=== PATIENT | female | born 1960 | race Caucasian/White ===

== ENCOUNTER 2016-04-11 11:32 | Outpatient (CLI) | payer BC | END 2016-04-11 11:33 | disposition home or self-care (01) | DX: E03.9 Hypothyroidism, unspecified (principal) ==

== ENCOUNTER 2017-05-04 07:49 | Outpatient (CLI) | payer BC ==
[2017-05-04 12:42] LABS: BASOPHILS % (AUTO) 0.6 %; EOSINOPHILS # (AUTO) 0.2 10^3/uL (0.0-0.7); EOSINOPHILS % (AUTO) 3.4 %; HGB - HEMOGLOBIN 13.3 g/dL (12.0-16.0); LYMPHOCYTES # (AUTO) 1.5 10^3/uL (1.5-3.5); LYMPHOCYTES % (AUTO) 22.1 %; MEAN CORPUSCULAR HEMOGLOBIN 30.6 pg (27.0-31.0); MEAN CORPUSCULAR HGB CONC 35.1 g/dL (32.0-36.0); MEAN CORPUSCULAR VOLUME 87.4 fL (81.0-99.0); MEAN PLATELET VOLUME 8.9 fL (7.9-10.8); MONOCYTES # (AUTO) 0.4 10^3/uL (0.0-1.0); MONOCYTES % (AUTO) 6.4 %; NEUTROPHILS # (AUTO) 4.5 10^3/uL (1.5-6.6); NEUTROPHILS % (AUTO) 67.5 %; PLT - PLATELET COUNT 191 10^3/uL (130-450); RED BLOOD COUNT 4.35 10^6/uL (4.20-5.40); WHITE BLOOD COUNT 6.7 x10^3/uL (4.8-10.8)
[2017-05-04 13:02] LABS: HB2 TOTAL 14.5 g/dL; HEMOGLOBIN A1C 0.65 g/dL; HEMOGLOBIN A1C % 6.3 % (4.6-6.2)
[2017-05-04 13:06] LABS: ALBUMIN/GLOBULIN RATIO 1.3 (1.0-2.2); ALKALINE PHOSPHATASE 49 IU/L (42-121); ALT ALANINE AMINOTRANSFERASE 19 IU/L (10-60); AST ASPARTATE AMINOTRANSFERASE 18 IU/L (10-42); BILIRUBIN,TOTAL 0.3 mg/dL (0.2-1.0); BUN - BLOOD UREA NITROGEN 21 mg/dL (6-20); CALCIUM 8.9 mg/dL (8.5-10.3); CARBON DIOXIDE - CO2 27 mmol/L (21-32); CHLORIDE 104 mmol/L (101-111); CHOL/HDL RATIO 3.4 (<4.4); CHOLESTEROL 189 mg/dL; CREATININE 0.9 mg/dL (0.4-1.0); GFR - MDRD 64 (>89); GLUCOSE 128 mg/dL (70-100); HDL CHOLESTEROL 55 mg/dL; LDL CHOLESTEROL,CALCULATED 119 mg/dL; LDL/HDL RATIO 2.2 (<4.4); SODIUM 138 mmol/L (135-145); TOTAL PROTEIN 7.2 g/dL (6.7-8.2); VLDL CHOLESTEROL 15 mg/dL
== END 2017-05-04 07:50 | disposition home or self-care (01) ==
LOC: LAB.WCP 07:49
PROVIDERS: ATTEND Physician Assistant Medical
DX: Z00.00 Encounter for general adult medical examination without abnormal findings (principal); E11.9 Type 2 diabetes mellitus without complications; E03.9 Hypothyroidism, unspecified; Z51.81 Encounter for therapeutic drug level monitoring; Z79.899 Other long term (current) drug therapy
CPT/HCPCS: 36415; 80053; 80061; 82043; 83036; 83721; 84443; 85025

== ENCOUNTER 2017-05-06 07:47 | Outpatient (CLI) | payer BC ==
--- NOTE | 2017-05-06 16:58 | DEXA Report ---
DEXA SCAN: 05/06/2017 CLINICAL INDICATION: Osteopenia. TECHNIQUE: Dual energy x-ray absorptiometry (DXA) was performed on a [employer] system. Regions measured are the AP spine, femoral neck, and, if needed, forearm. COMPARISON: None. In accordance with the International Society for Clinical Densitometry (ISCD) guidelines, data from previous exams may be reanalyzed using current recommendations and techniques. This is done to allow a more accurate basis for comparison with the current study. FINDINGS: The data for the lumbar spine is as follows: REGION BMD (g/cm/cm) T-SCORE Z-SCORE L1 1.153 0.2 0.1 L2 1.091 -0.9 -1.0 L3 1.155 -0.4 -0.4 L4 1.072 -1.1 -1.1 TOTAL 1.115 -0.5 -0.6 NOTE: All evaluable vertebrae are used for classification. The data for the hip is as follows: REGION BMD (g/cm/cm) T-SCORE Z-SCORE Neck 0.864 -1.3 -0.8 TOTAL 1.015 0.1 0.1 NOTE: The femoral neck or total proximal femur, whichever is lowest, is used for classification. IMPRESSION: THE WHO CLASSIFICATION BASED ON THE INTERNATIONAL REFERENCE STANDARD IS OSTEOPENIA (REFERENCE LEFT FEMORAL NECK). THE FRACTURE RISK IS INCREASED. RECOMMENDATION: Patients with diagnosis of osteoporosis or osteopenia should have regular bone mineral density assessment. For those eligible for Medicare, routine testing is allowed once every 2 years. Testing frequency can be increased for patients who have rapidly progressing disease or for those who are receiving medical therapy to restore bone mass. COMMENT: World Health Organization (WHO) definitions for osteoporosis and osteopenia: NORMAL BMD: T-score at 1.0 or higher, fracture risk is low. OSTEOPENIA BMD: T-score between 1.0 and -2.5, fracture risk is increased. OSTEOPOROSIS BMD: T-score at 2.5 or lower, fracture risk high. National Osteoporosis Foundation recommends: 1. Obtain adequate dietary calcium (at least 1200 mg per day) and vitamin D (400 -800 international units per day). 2. Participate, as appropriate, in regular weightbearing and muscle- strengthening exercise. 3. Avoid tobacco use and reduce alcohol and caffeine intake. 4. For more detailed information see the website at www.NOF.org. TD: 05/06/2017 11:50 EILEEN
== END 2017-05-06 07:48 | disposition home or self-care (01) ==
LOC: DI 07:47
PROVIDERS: ATTEND Physician Assistant Medical
DX: M85.88 Other specified disorders of bone density and structure, other site (principal)
CPT/HCPCS: 77080

== ENCOUNTER 2017-05-06 07:49 | Outpatient (CLI) | payer BC ==
--- NOTE | 2017-05-07 16:09 | Mammography Report ---
DATE OF SERVICE: 05/06/2017 DIGITAL SCREENING MAMMOGRAM: 05/06/2017 CLINICAL INDICATION: A 57-year-old with a family history of breast cancer for screening. COMPARISON: 03/2016, 03/2015, 02/2014, 02/2013, 06/2011, 04/2009. TECHNIQUE: Routine CC and MLO projections were obtained of the breasts. FINDINGS: The breasts again demonstrate scattered fibroglandular densities bilaterally. Punctate, typically benign calcifications are present. No suspicious masses, clustered microcalcifications, or regions of architectural distortion are identified. IMPRESSION: BENIGN FINDINGS. RECOMMENDATION: Routine annual screening today otherwise clinically indicated. BIRADS CATEGORY 2 - BENIGN FINDINGS. STANDARD QUALIFYING STATEMENTS: 1. This examination was reviewed with the aid of Computer-Aided Detection (CAD). 2. A negative or benign imaging report should not delay biopsy if clinically suspicious findings are present. Consider surgical consultation if warranted. More than 5% of cancers are not identified by imaging. 3. Dense breasts may obscure an underlying neoplasm. TD: 05/07/2017 16:08
== END 2017-05-06 07:50 | disposition home or self-care (01) ==
LOC: DI 07:49
PROVIDERS: ATTEND Physician Assistant Medical
DX: Z12.31 Encounter for screening mammogram for malignant neoplasm of breast (principal); Z80.3 Family history of malignant neoplasm of breast
CPT/HCPCS: 77067

== ENCOUNTER 2017-12-01 11:27 | Outpatient (CLI) | payer BC ==
[2017-12-01 18:42] LABS: BASOPHILS # (AUTO) 0.1 10^3/uL (0.0-0.1); BASOPHILS % (AUTO) 1.1 %; EOSINOPHILS # (AUTO) 0.2 10^3/uL (0.0-0.7); HGB - HEMOGLOBIN 13.4 g/dL (12.0-16.0); LYMPHOCYTES # (AUTO) 1.6 10^3/uL (1.5-3.5); MEAN CORPUSCULAR HGB CONC 33.5 g/dL (32.0-36.0); MEAN CORPUSCULAR VOLUME 92.5 fL (81.0-99.0); MEAN PLATELET VOLUME 9.3 fL (7.9-10.8); MONOCYTES # (AUTO) 0.4 10^3/uL (0.0-1.0); MONOCYTES % (AUTO) 6.9 %; NEUTROPHILS # (AUTO) 3.1 10^3/uL (1.5-6.6); PLT - PLATELET COUNT 205 10^3/uL (130-450); RED BLOOD COUNT 4.33 10^6/uL (4.20-5.40); RED CELL DISTRIBUTION WIDTH 14.1 % (12.0-15.0); WHITE BLOOD COUNT 5.3 x10^3/uL (4.8-10.8)
[2017-12-01 19:19] LABS: ALBUMIN/GLOBULIN RATIO 1.3 (1.0-2.2); ALKALINE PHOSPHATASE 48 IU/L (42-121); ALT ALANINE AMINOTRANSFERASE 18 IU/L (10-60); AST ASPARTATE AMINOTRANSFERASE 18 IU/L (10-42); BILIRUBIN,TOTAL 0.8 mg/dL (0.2-1.0); BUN - BLOOD UREA NITROGEN 23 mg/dL (6-20); CALCIUM 9.1 mg/dL (8.5-10.3); CARBON DIOXIDE - CO2 25 mmol/L (21-32); CHLORIDE 105 mmol/L (101-111); CREATININE 0.8 mg/dL (0.4-1.0); GFR - MDRD 73 (>89); GLUCOSE 152 mg/dL (70-100); SODIUM 137 mmol/L (135-145); TOTAL PROTEIN 7.2 g/dL (6.7-8.2)
[2017-12-01 20:05] LABS: HB2 TOTAL 14.2 g/dL; HEMOGLOBIN A1C 0.66 g/dL; HEMOGLOBIN A1C % 6.4 % (4.6-6.2)
== END 2017-12-01 11:28 | disposition home or self-care (01) ==
LOC: LAB.WCP 11:27
PROVIDERS: ATTEND Family Medicine
DX: I10 Essential (primary) hypertension (principal); E11.9 Type 2 diabetes mellitus without complications; E03.9 Hypothyroidism, unspecified
CPT/HCPCS: 36415; 80053; 83036; 84443; 85025

== ENCOUNTER 2018-08-13 08:00 | Outpatient (CLI) | payer BC, OTHER ==
[2018-08-13 12:28] LABS: BASOPHILS # (AUTO) 0.1 10^3/uL (0.0-0.1); BASOPHILS % (AUTO) 1.2 %; EOSINOPHILS % (AUTO) 0.3 %; HGB - HEMOGLOBIN 13.8 g/dL (12.0-16.0); LYMPHOCYTES # (AUTO) 2.1 10^3/uL (1.5-3.5); LYMPHOCYTES % (AUTO) 28.4 %; MEAN CORPUSCULAR HEMOGLOBIN 30.6 pg (27.0-31.0); MEAN CORPUSCULAR HGB CONC 32.9 g/dL (32.0-36.0); MEAN PLATELET VOLUME 8.9 fL (7.9-10.8); MONOCYTES # (AUTO) 0.5 10^3/uL (0.0-1.0); MONOCYTES % (AUTO) 6.4 %; NEUTROPHILS # (AUTO) 4.7 10^3/uL (1.5-6.6); NEUTROPHILS % (AUTO) 63.7 %; PLT - PLATELET COUNT 246 10^3/uL (130-450); RED BLOOD COUNT 4.52 10^6/uL (4.20-5.40); RED CELL DISTRIBUTION WIDTH 14.4 % (12.0-15.0); WHITE BLOOD COUNT 7.4 x10^3/uL (4.8-10.8)
[2018-08-13 13:09] LABS: ALBUMIN 4.4 g/dL (3.2-5.5); ALBUMIN/GLOBULIN RATIO 1.3 (1.0-2.2); ALKALINE PHOSPHATASE 53 IU/L (42-121); ALT ALANINE AMINOTRANSFERASE 23 IU/L (10-60); AST ASPARTATE AMINOTRANSFERASE 20 IU/L (10-42); BILIRUBIN,TOTAL 0.8 mg/dL (0.2-1.0); BUN - BLOOD UREA NITROGEN 23 mg/dL (6-20); CALCIUM 9.3 mg/dL (8.5-10.3); CARBON DIOXIDE - CO2 27 mmol/L (21-32); CHLORIDE 102 mmol/L (101-111); CHOL/HDL RATIO 2.9 (<4.4); CHOLESTEROL 209 mg/dL; CREATININE 0.9 mg/dL (0.4-1.0); GFR - MDRD 64 (>89); GLUCOSE 122 mg/dL (70-100); HDL CHOLESTEROL 73 mg/dL; LDL CHOLESTEROL,CALCULATED 112 mg/dL; LDL/HDL RATIO 1.5 (<4.4); SODIUM 137 mmol/L (135-145); TOTAL PROTEIN 7.8 g/dL (6.7-8.2); VLDL CHOLESTEROL 24 mg/dL
[2018-08-13 13:14] LABS: HEMOGLOBIN A1C 0.71 g/dL; HEMOGLOBIN A1C % 6.5 % (4.6-6.2)
== END 2018-08-13 23:59 | disposition home or self-care (01) ==
LOC: LAB.WCP 08:00
PROVIDERS: ATTEND Family Medicine
DX: Z00.00 Encounter for general adult medical examination without abnormal findings (principal); I10 Essential (primary) hypertension; E11.9 Type 2 diabetes mellitus without complications
CPT/HCPCS: 36415; 80053; 80061; 83036; 83721; 84443; 85025

== ENCOUNTER 2018-09-10 17:49 | Inpatient (IN) | payer BC, OTHER ==
--- NOTE | 2018-09-10 18:53 | ED Physician Documentation ---
PD HPI CHEST PAIN - Stated complaint Stated Complaint: HIGH HR - Chief complaint Chief Complaint: Cardiac - History obtained from History obtained from: Patient - History of Present Illness Timing - onset: Other (For the last 2 weeks whenever she exercises she has some very mild chest pressure and feeling of a rapid heart rate associated with fatigue. It comes and goes. There is no shortness of breath at rest. 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 HEENT: Tonsil/Adenoidectomy - Allergies Allergies/Adverse Reactions: Allergies Allergy/AdvReac Type Severity Reaction Status Date / Time No Known Drug Allergies Allergy Verified 09/10/18 18:00 - Social History Does the pt smoke?: No Smoking Status: Never smoker Does the pt drink ETOH?: Yes Does the pt have substance abuse?: No - Immunizations Immunizations are current?: Yes - POLST Patient has POLST: No PD ED PE NORMAL - Vitals Vital signs reviewed: Yes - General General: Alert and oriented X 3, No acute distress - Neck Neck: Supple, no meningeal sign, No bony TTP - Cardiac Cardiac: RRR, No murmur - Respiratory Respiratory: No respiratory distress, Clear bilaterally - Abdomen Abdomen: Non tender - Derm Derm: No rash - Extremities Extremities: No edema, No calf tenderness / cord - Neuro Neuro: Alert and oriented X 3, Normal speech Results - Vitals Vitals: Vital Signs - 24 hr 09/10/18 09/10/18 09/10/18 17:55 18:42 19:29 Temperature 98.0 C H Heart Rate 95 82 Respiratory 18 18 36 H Rate Blood Pressure 162/92 H 161/91 H O2 Saturation 95 95 09/10/18 09/10/18 09/10/18 20:15 20:22 20:30 Temperature 36.6 C Heart Rate 80 82 Respiratory 22 21 Rate Blood Pressure 158/111 H O2 Saturation 89 L 98 100 Oxygen O2 Source Nasal cannula Oxygen Flow Rate 2 - EKG (time done) 1807 Rate: Rate (enter#) (80) Rhythm: NSR [place]: Normal Intervals: Normal TN QRS: Normal, Low voltage (Slightly low voltage in the precordial leads, could be due to body habitus.) Ischemia: No: ST elevation c/w ischemia, ST elevation c/w repol, ST depression Computer interpretation: Agree with computer - Labs Labs: Laboratory Tests 09/10/18 09/10/18 09/10/18 18:54 18:54 18:54 WBC 6.3 RBC 4.27 Hgb 13.5 Hct 40.0 MCV 93.6 MCH 31.5 H MCHC 33.6 RDW 14.5 Plt Count 205 MPV 8.2 Neut # (Auto) 3.7 Lymph # (Auto) 1.9 [place] # (Auto) 0.5 Eos # (Auto) 0.1 Baso # (Auto) 0.1 Absolute Nucleated RBC 0.00 Nucleated RBC % 0.1 PT 11.9 INR 1.1 Sodium 140 Potassium 4.2 Chloride 103 Carbon Dioxide 24 Anion Gap 13.0 BUN 20 Creatinine 0.9 Estimated GFR (MDRD) 64 L Glucose 170 H Calcium 9.2 Magnesium 1.8 Total Bilirubin 0.5 AST 19 ALT 17 Alkaline Phosphatase 50 Troponin I Total Protein 7.1 Albumin 3.9 Globulin 3.2 Albumin/Globulin Ratio 1.2 Lipase 36 09/10/18 18:54 WBC RBC Hgb Hct MCV MCH MCHC RDW Plt Count MPV Neut # (Auto) Lymph # (Auto) [place] # (Auto) Eos # (Auto) Baso # (Auto) Absolute Nucleated RBC Nucleated RBC % PT INR Sodium Potassium Chloride Carbon Dioxide Anion Gap BUN Creatinine Estimated GFR (MDRD) Glucose Calcium Magnesium Total Bilirubin AST ALT Alkaline Phosphatase Troponin I 0.06 Total Protein Albumin Globulin Albumin/Globulin Ratio Lipase - Rads (name of study) CTPA Radiology: EMP read contemporaneously (Nonspecific pulmonary nodules; There are multiple bilateral pulmonary emboli lobar and segmental within all lobes without saddle pulmonary embolism. There is flattening of the intraventricular septum consistent with right ventricular strain.) PD MEDICAL DECISION MAKING - ED course ED course: 58-year-old woman with a couple of weeks of dyspnea, exertional tachycardia and chest discomfort. On examination she appears obviously breathless with resting tachypnea up to 32 or so. There is no resting tachycardia but we walked her down the costa and she became inappropriately tachycardic with even minimal ambulation up into the 120s. She also had some episodes of hypoxia on room air while in bed down to 88 or 89%. She had a troponin that was not quite negative at 0.06. At that point she was sent for a CT pulmonary angiogram which was read by me as being consistent with a decent burden of bilateral pulmonary emboli. She was started on heparin drip and bolus. Her PESI score is 120 points, class IV. Departure - Departure Disposition: 66 [facility]H DC/Xfer Clinical Impression: Hypoxemia Pulmonary embolism Qualifiers: Pulmonary embolism type: unspecified Chronicity: acute Acute cor pulmonale presence: with acute cor pulmonale Qualified Code(s): I26.09 - Other pulmonary embolism with acute cor pulmonale Condition: Serious
[2018-09-10 19:02] LABS: BASOPHILS # (AUTO) 0.1 10^3/uL (0.0-0.1); EOSINOPHILS # (AUTO) 0.1 10^3/uL (0.0-0.7); EOSINOPHILS % (AUTO) 2.3 %; HGB - HEMOGLOBIN 13.5 g/dL (12.0-16.0); LYMPHOCYTES # (AUTO) 1.9 10^3/uL (1.5-3.5); LYMPHOCYTES % (AUTO) 30.7 %; MEAN CORPUSCULAR HEMOGLOBIN 31.5 pg (27.0-31.0); MEAN CORPUSCULAR HGB CONC 33.6 g/dL (32.0-36.0); MEAN CORPUSCULAR VOLUME 93.6 fL (81.0-99.0); MEAN PLATELET VOLUME 8.2 fL (7.9-10.8); MONOCYTES # (AUTO) 0.5 10^3/uL (0.0-1.0); MONOCYTES % (AUTO) 7.7 %; NEUTROPHILS # (AUTO) 3.7 10^3/uL (1.5-6.6); NEUTROPHILS % (AUTO) 58.3 %; PLT - PLATELET COUNT 205 10^3/uL (130-450); RED BLOOD COUNT 4.27 10^6/uL (4.20-5.40); RED CELL DISTRIBUTION WIDTH 14.5 % (12.0-15.0); WHITE BLOOD COUNT 6.3 x10^3/uL (4.8-10.8)
[2018-09-10 19:05] LABS: INR 1.1 (0.8-1.2); PT - PROTHROMBIN TIME 11.9 secs (9.9-12.6)
[2018-09-10 19:13] LABS: ALBUMIN 3.9 g/dL (3.2-5.5); ALBUMIN/GLOBULIN RATIO 1.2 (1.0-2.2); BILIRUBIN,TOTAL 0.5 mg/dL (0.2-1.0); CALCIUM 9.2 mg/dL (8.5-10.3); CREATININE 0.9 mg/dL (0.4-1.0); MAGNESIUM 1.8 mg/dL (1.7-2.8); TOTAL PROTEIN 7.1 g/dL (6.7-8.2)
[2018-09-10] MEDS ORDERED: IOVERSOL 320 100 ML VIAL IVP ONE ×2 (19:45→20:22)
[2018-09-10] MEDS ORDERED: HEPARIN 25000UNITS/500ML (D5W) 25,000 UNIT/500 ML BAG IV STA (20:14)
[2018-09-10] MEDS ORDERED: HEPARIN 5,000 UNIT/ML VIAL ONE (20:26)
--- NOTE | 2018-09-10 20:48 | CT Report ---
Reason: dyspnea Procedure Date: 09/10/2018 Accession Number: [id number] / [id number] Procedure: CT - ANGIO CHEST W/WO CPT Code: FULL RESULT: EXAM: CT ANGIOGRAM CHEST EXAM DATE: 09/10/2018 08:20 PM. CLINICAL HISTORY: Dyspnea. COMPARISON: None. TECHNIQUE: Routine helical imaging was performed through the chest in the pulmonary arterial phase. IV Contrast: 80 ML OPTIRAY 320. Reconstructions: Coronal 3-D MIP reconstructions.Sagittal and coronal. In accordance with CT protocol optimization, one or more of the following dose reduction techniques were utilized for this exam: automated exposure control, adjustment of mA and/or KV based on patient size, or use of iterative reconstructive technique. FINDINGS: Pulmonary Arteries: Diagnostic quality: Adequate through the segmental arteries. Positive for multiple bilateral pulmonary emboli. There are lobar and segmental emboli within all lobes. There are lower lobe subsegmental emboli. No saddle pulmonary embolism. There is flattening of the intraventricular septum. The RV LV ratio is abnormal at 1.3. There is no reflux of contrast into the hepatic veins. Lungs/Pleura: There are several nonspecific pulmonary nodules. There is a 10 mm right lower lobe nodule series 5 image 98. There is a 5 mm right upper lobe nodule image 33. There is a 6 mm right middle lobe nodule image 77. There is a 4 mm right lower lobe nodule image 111. There is a 4 mm left upper lobe nodule image 49. There is a 3 mm lingular nodule image 91. Negative for pleural effusion and pneumothorax. Mediastinum: The heart size is normal. No pericardial effusion. No mediastinal or hilar lymphadenopathy. Thoracic Aorta: Unremarkable. Upper Abdomen: Unremarkable. Other: None. IMPRESSION: 1. Positive for acute pulmonary embolism at the lobar and segmental level. Positive for CT features of right ventricular strain. 2. Several noncalcified indeterminant peripheral pulmonary nodules. Largest nodule 10 mm. Differential diagnosis would include granulomatous disease, metastatic disease or inflammatory nodule. If there are no prior chest CTs for comparison, recommend follow-up noncontrast chest CT in 3-6 months to reevaluate. JOHN The above critical result findings were discussed with Zaid García by Dr. Aston Lal at 08:46 PM on 09/10/2018.
[2018-09-10] MEDS ORDERED: ZOLPIDEM 5 MG TABLET PO PRN (22:35)
[2018-09-10] MEDS ORDERED: ACETAMINOPHEN 325 MG TABLET PO PRN (22:35)
[2018-09-10] MEDS ORDERED: ONDANSETRON 4 MG/2 ML VIAL IVP PRN (22:35)
[2018-09-10] MEDS ORDERED: oxyCODONE 5 MG TABLET PO PRN (22:35)
[2018-09-10 23:01] LABS: HGB - HEMOGLOBIN 13.1 g/dL (12.0-16.0); MEAN CORPUSCULAR HEMOGLOBIN 30.7 pg (27.0-31.0); MEAN CORPUSCULAR HGB CONC 32.9 g/dL (32.0-36.0); MEAN CORPUSCULAR VOLUME 93.5 fL (81.0-99.0); MEAN PLATELET VOLUME 8.5 fL (7.9-10.8); RED BLOOD COUNT 4.25 10^6/uL (4.20-5.40); RED CELL DISTRIBUTION WIDTH 14.5 % (12.0-15.0)
[2018-09-10] MEDS: IPRATROPIUM/ALBUTEROL 3 ML NEB INH SCH (23:29)
--- NOTE | 2018-09-11 00:50 | HISTORY & PHYSICAL EXAMINATION ---
DATE OF SERVICE: 09/10/2018 Physician: Myra Yen MD CHIEF COMPLAINT: Dyspnea on exertion and palpitations. HISTORY OF PRESENT ILLNESS: The patient is a pleasant 58-year-old white female with past medical history of back pain, hypertension, type 2 diabetes, osteoarthritis and hypothyroidism. She was a good historian, surrounded by family members when I examined her. She reported the following: She often travels to [place] and about six months ago when she was sitting in the car going to [place], she noticed right-sided hip pain. She followed up as an outpatient and underwent multiple studies during the past six months. In particular, besides the hip pain, she had left-sided knee pain as well and developed back pain. It was felt that the hip pain was secondary to a nerve issue, which I suppose could be sciatica. Subsequently MRI was done, which showed degenerative disease of the spine. She was told that she had "decreased fat pads" between the vertebrae and she was referred to see a clinical field specialist for possible steroid injections. Regarding the left knee pain, she describes that it started at the back of the knee and the pain radiated down on her calf; she was evaluated by an metrology specialist and was told to have a meniscus tear. These aches and pains have been ongoing for the past several months. Subsequently, two weeks ago, she noted that she became short of breath on minimal physical activity. This was a progressive complaint and eventually she started to feel short of breath even at rest. When she would do minimal activity, she would develop palpitations and chest discomfort and heaviness. Due to these complaints, she was instructed by her primary care provider to come to the ER. Upon presentation to the ER, she was found with hypoxic respiratory failure and required supplemental oxygen. Her oxygen saturation was in the 80s without oxygen. Her heart rate increased to 120 on minimal activity such as walking a few steps. At rest, her heart rate was around 70. Respiratory rate was in the 30s. Troponin was slightly elevated at 0.06. CT angiography of the chest showed bilateral pulmonary embolism at lobar and segmental location, in addition, the CT scan was suggestive of right ventricular strain. Besides the pulmonary embolism, pulmonary nodules were also described on the CT scan and three to six month for interval followup was recommended. Reviewing additional laboratories, coagulation studies were unremarkable, white blood cell count was normal, blood counts were unremarkable. Glucose was 170. Liver function tests were normal. EKG showed sinus rhythm with left axis and nonspecific changes. REVIEW OF SYMPTOMS: Please see pertinent positives listed above at history of present illness. In addition, the patient reported history of miscarriage in her mother, the mother had more than five miscarriages. No other miscarriage or history of blood clots in the family. She did report that she is up to date with health screens. Colonoscopy was 10 years ago, was normal and she is due for another one in the next few months. She goes for mammography yearly. She did not report any prolonged periods of immobility, did not have recent surgery, does not have history of cancer, although mentions that multiple family members in her family had different cancers. She is a nonsmoker, quit more than 30 years ago, and only smoked for a few years. Did not report any trauma to the lower extremities or any other trauma in particular. The patient denied prior history of any bleeding complication. I completed 12-system review and there was no additional issue or complaint. PAST MEDICAL HISTORY 1. Hypertension. 2. Type 2 diabetes, not on insulin. 3. Osteoarthritis. 4. Hypothyroidism. 5. Seasonal allergies. OUTPATIENT MEDICATIONS: Included 1. Metformin. 2. Lisinopril. 3. Thyroid supplement. 4. A few other medications. 5. Notably, medication reconciliation is not yet done or available. SOCIAL HISTORY: The patient smoked more than 30 years ago. She smoked only for two years, although at that time, she smoked about a pack of cigarettes per day. She does not drink. She is fully functional with instrumental activities of daily living. FAMILY HISTORY: Positive for laryngeal cancer in the father, positive for five miscarriages in the mother and positive for breast cancer in the sister. The patient also mentions that one of her aunts had rheumatoid arthritis. CODE STATUS: FULL CODE, which was discussed with the patient. PHYSICAL EXAMINATION VITAL SIGNS: Temperature 36.3 Celsius with heart rate in the 80s, blood pressure 150/60, respiratory rate 26, oxygen saturation 89% on room air. GENERAL: The patient is a well-developed, elderly female who was not in acute distress, could speak in short sentences. Got short of breath on minimal inactivity such as sitting up in bed. LUNGS: Clear to auscultation without wheezes or crackles. Increased work of breathing, required supplemental oxygen. CARDIOVASCULAR: S1, S2. Regular. No obvious murmur. MUSCULOSKELETAL: Obesity. No calf tenderness. No phlebitis. No muscle tenderness or joint swelling. No obvious injury; however, on the right lower extremity, there was a small bruise below the knee. LYMPHATIC: Varicose veins notable. NEUROLOGIC: Alert, oriented, nonfocal. PSYCH: Cooperative. SKIN: With varicose veins. A small bruise on the right leg, otherwise unremarkable. No jaundice. No pallor. ASSESSMENT AND PLAN: The patient is a 58-year-old female who is getting admitted with acute segmental and lobar bilateral pulmonary embolism. She also seems to have right heart strain on CT and that will need to be verified by echocardiogram. In addition, she is found with incidental pulmonary nodules, which would require interval followup, now as she is diagnosed with pulmonary embolism, I would likely followup sooner than later. Regarding the etiology of pulmonary embolism, she does not report prolonged immobility, recent surgery, family history of hypercoagulable state or personal history of cancer. She has some risk factors which include obesity, varicose veins, hypertension, diabetes, remote smoking history. ACTIVE ISSUES/DIAGNOSES 1. Hypoxic respiratory failure requiring supplemental oxygen secondary to pulmonary embolism. 2. Right heart strain is probable, will need confirmation by echocardiogram. 3. Abnormal EKG with nonspecific changes. 4. Slightly elevated troponin, secondary to pulmonary embolism and right heart strain. 5. Noninsulin dependent diabetes. 6. Hemodynamically stable; however, heart rate increases/significant tachycardia on minimal activity that is in the setting of acute pulmonary embolism. PLAN AND ORDERS 1. The patient is getting admitted as inpatient. She is continued on heparin drip. We will provide supportive care with supplemental oxygen and bronchodilators. We will hold Metformin as the patient received contrast load. We will monitor the blood glucose on sliding scale. With acute pulmonary embolism, the patient is preload dependent. Therefore, I will not use lisinopril or antihypertensives overnight. She could have hypotensive episodes and if that becomes a problem, we will provide IV hydration. 2. Awaiting medication reconciliation. We will continue home medications as appropriate. 3. Regarding etiology of the PE, I discussed with the patient that most likely she will need anticoagulation lifelong. If we do not find a reason for PE, then the reason for that is a significant clot burden. If we do find a reason for the PE, then most likely that will be a disease process that will also need lifelong anticoagulation. In any case for now, I added CHAYITO, ESR and Leiden V factor mutation. I informed the patient that she will need cancer screening to be up to date and she will need followup for the pulmonary nodules. 4. Echocardiogram will be done; if right heart strain shown, then I was told by the ER physician, Dr. García, that the patient would be a candidate to transfer to [facility] for intra-pulmonary TPA administration and dissolution of the clot locally. I was also told that at this point, she would not be accepted for this procedure as the procedure is dependent on an echocardiogram. 5. Deep venous thrombosis prophylaxis. We will not order Venodyne boots, as the patient likely has DVT. We will continue heparin therapeutic anticoagulation. If she does not transfer to [facility] oral anticoagulant can be started. DOAC versus coumadin depending on isurance coverage. 6. Regarding further workup, having ultrasound of the legs would not change the management. The patient would be on heparin drip and we already know that she has DVT somewhere in her legs or pelvis. The clot burden in the lower extremities could not be significant as the patient does not have abnormal physical exam. Therefore, I did not order ultrasound of the legs. CODE STATUS: Code status was discussed, it is FULL CODE. ATTESTATION: I certify that the reasonable expectation for this patient is to remain hospitalized for more than 48 hours, however, to discharge or transfer to another facility in less than 96 hours. Time spent in the care of this patient 60 minutes. TD: 09/10/2018 23:45 EILEEN
[2018-09-11] MEDS ORDERED: HEPARIN 25000UNITS/500ML (D5W) 25,000 UNIT/500 ML BAG IV SCH (01:00)
[2018-09-11] MEDS: SODIUM CHLORIDE FLUSH 0.9% 10 ML SYRINGE IVP SCH ×3 (01:47→16:54)
[2018-09-11] MEDS: SODIUM CHLORIDE FLUSH 0.9% 10 ML SYRINGE IVP PRN (02:11)
[2018-09-11 07:07] LABS: HGB - HEMOGLOBIN 12.8 g/dL (12.0-16.0); MEAN CORPUSCULAR HEMOGLOBIN 31.1 pg (27.0-31.0); MEAN CORPUSCULAR HGB CONC 33.4 g/dL (32.0-36.0); MEAN CORPUSCULAR VOLUME 92.9 fL (81.0-99.0); MEAN PLATELET VOLUME 8.2 fL (7.9-10.8); RED BLOOD COUNT 4.1 10^6/uL (4.20-5.40); RED CELL DISTRIBUTION WIDTH 14.6 % (12.0-15.0); WHITE BLOOD COUNT 5.5 x10^3/uL (4.8-10.8)
[2018-09-11] MEDS ORDERED: CYCLOBENZAPRINE 10 MG TABLET PO PRN (08:22)
[2018-09-11] MEDS ORDERED: HYDROmorphone 1 MG/ML CARPUJECT IVP PRN (08:22)
[2018-09-11] MEDS: INSULIN ASPART 300 UNIT/3 ML PEN SUBQ SCH ×4 (08:59→20:53)
[2018-09-11] MEDS: IPRATROPIUM/ALBUTEROL 3 ML NEB INH SCH ×2 (09:09→19:50)
[2018-09-11] MEDS: MONTELUKAST 10 MG TABLET PO SCH (09:16)
[2018-09-11] MEDS: POLYETHYLENE GLYCOL 3350 17 GM PACKET PO SCH (09:18)
[2018-09-11] MEDS ORDERED: APIXABAN 5 MG TABLET PO SCH (15:03)
--- NOTE | 2018-09-11 15:09 | PROVIDER PROGRESS NOTE ---
Subjective - Prog Note Date Prog Note Date: 09/11/18 Prog Note Time: 15:07 - Subjective Pt reports feeling: Improved Subjective: Pamella complains of right hip pain, that has become worse from her normal chronic pain. She denies headache, chest pain, blood sputum, nausea, vomiting, a rash, or increased shortness of breath. She was very talkative and could speak in full sentences. Current Medications - Current Medications Current Medications: Active Medications: Acetaminophen (Tylenol) 650 mg PO Q4HR PRN Albuterol/Ipratropium (Duoneb) 3 ml INH BID JOY Apixaban (Eliquis) 10 mg PO BID JOY Cyclobenzaprine HCl (Flexeril) 5 mg PO TID PRN Furosemide (Lasix Inj 40 Mg Vial) 40 mg IVP DAILY JOY Hydromorphone HCl (Dilaudid Inj Carp) 1 mg IVP Q2HR PRN Insulin Aspart (Novolog) 1 - 5 unit SUBQ 0800,1200,1700,2100 JOY; Protocol Insulin Glargine (Lantus Solostar) 5 unit SUBQ QPM JOY Levothyroxine Sodium (Synthroid) 50 mcg PO QDAC JOY Montelukast Sodium (Singulair) 10 mg PO DAILY JOY Ondansetron HCl (Zofran Inj) 4 mg IVP Q6HR PRN Oxycodone HCl (Roxicodone) 5 mg PO Q4HR PRN Polyethylene Glycol (Miralax) 17 gm PO DAILY JOY Zolpidem Tartrate (Ambien) 5 mg PO QPM PRN HOME meds: Acetaminophen 1,000 mg PO TID 09/11/18 Levothyroxine Sodium 50 mcg PO QDAC 09/11/18 Lisinopril 20 mg PO DAILY 09/11/18 Meloxicam 15 mg PO DAILY 09/11/18 Metformin HCl 1,000 mg PO QDBREAKFAST 09/11/18 Montelukast Sodium 10 mg PO DAILY 09/11/18 Objective - Vital Signs/Intake & Output Reviewed Vital Signs: Yes Vital Signs: Vital Signs x48h Temp Pulse Pulse Resp BP Pulse Ox 09/11/18 12:01 77 16 09/11/18 09:12 36.4 C L 82 18 145/76 H 96 Intake & Output: Intake & Output 09/08/18 09/09/18 09/10/1819 23:59 23:59 23:59 23:59 Intake Total 700 Balance 700 - Objective General Appearance: positive: No acute distress, Alert Eyes Bilateral: positive: PERRL Eyes: OU Conjunctivae pale ENT: positive: ENT inspection nml, Pharynx nml, No signs of dehydration Neck: positive: Thyroid nml, No JVD, Trachea midline, Stiff neck Respiratory: positive: Chest non-tender, No respiratory distress, Wheezes, Other (scattered crackles bilaterally) Cardiovascular: positive: Regular rate & rhythm, No gallop, Tachycardia, Systolic murmur, Decreased pulse(s) Peripheral Pulses: 1+ Radial (R), 1+ Radial (L) Abdomen: positive: Non-tender, Nml bowel sounds, Hepatomegaly, Other (obese, soft) Back: positive: Nml inspection Skin: positive: Color nml, No rash, Warm, Dry Extremities: positive: Non-tender, Full ROM, Pedal edema, Joint swelling Neurologic/Psychiatric: positive: Oriented x3, CN's nml (2-12), Motor nml, Sensation nml, Mood/affect nml Reflexes: Bicep (R): 3+, Bicep (L): 3+ - Lab Results Fish Bones: 09/11/18 06:16 09/10/18 18:54 Other Labs: Lab Results x24hrs 09/11/18 09/11/18 09/11/18 Range/Units 12:15 11:25 07:42 WBC (4.8-10.8) x10^3/uL RBC (4.20-5.40) 10^6/uL Hgb (12.0-16.0) g/dL Hct (37.0-47.0) % MCV (81.0-99.0) fL MCH (27.0-31.0) pg MCHC (32.0-36.0) g/dL RDW (12.0-15.0) % Plt Count (130-450) 10^3/uL MPV (7.9-10.8) fL Neut # (Auto) (1.5-6.6) 10^3/uL Lymph # (Auto) (1.5-3.5) 10^3/uL Grundy # (Auto) (0.0-1.0) 10^3/uL Eos # (Auto) (0.0-0.7) 10^3/uL Baso # (Auto) (0.0-0.1) 10^3/uL Absolute Nucleated RBC x10^3/uL Nucleated RBC % /100WBC ESR (0-30) mm/Hr PT (9.9-12.6) secs INR (0.8-1.2) Anti-Xa Level 0.5 ( - 0.7) U/mL Sodium (135-145) mmol/L Potassium (3.5-5.0) mmol/L Chloride (101-111) mmol/L Carbon Dioxide (21-32) mmol/L Anion Gap (6-13) BUN (6-20) mg/dL Creatinine (0.4-1.0) mg/dL Estimated GFR (MDRD) (>89) Glucose (70-100) mg/dL POC Whole Bld Glucose 162 H 148 H (70 - 100) mg/dL Calcium (8.5-10.3) mg/dL Magnesium (1.7-2.8) mg/dL Total Bilirubin (0.2-1.0) mg/dL AST (10-42) IU/L ALT (10-60) IU/L Alkaline Phosphatase (42-121) IU/L Troponin I (<0.49) ng/mL Total Protein (6.7-8.2) g/dL Albumin (3.2-5.5) g/dL Globulin (2.1-4.2) g/dL Albumin/Globulin Ratio (1.0-2.2) Lipase (22-51) U/L 09/11/18 09/11/18 09/11/18 Range/Units 06:16 06:16 06:16 WBC 5.5 (4.8-10.8) x10^3/uL RBC 4.10 L (4.20-5.40) 10^6/uL Hgb 12.8 (12.0-16.0) g/dL Hct 38.1 (37.0-47.0) % MCV 92.9 (81.0-99.0) fL MCH 31.1 H (27.0-31.0) pg MCHC 33.4 (32.0-36.0) g/dL RDW 14.6 (12.0-15.0) % Plt Count 187 (130-450) 10^3/uL MPV 8.2 (7.9-10.8) fL Neut # (Auto) (1.5-6.6) 10^3/uL Lymph # (Auto) (1.5-3.5) 10^3/uL Grundy # (Auto) (0.0-1.0) 10^3/uL Eos # (Auto) (0.0-0.7) 10^3/uL Baso # (Auto) (0.0-0.1) 10^3/uL Absolute Nucleated RBC x10^3/uL Nucleated RBC % /100WBC ESR (0-30) mm/Hr PT (9.9-12.6) secs INR (0.8-1.2) Anti-Xa Level 0.5 ( - 0.7) U/mL Sodium (135-145) mmol/L Potassium (3.5-5.0) mmol/L Chloride (101-111) mmol/L Carbon Dioxide (21-32) mmol/L Anion Gap (6-13) BUN (6-20) mg/dL Creatinine (0.4-1.0) mg/dL Estimated GFR (MDRD) (>89) Glucose (70-100) mg/dL POC Whole Bld Glucose (70 - 100) mg/dL Calcium (8.5-10.3) mg/dL Magnesium (1.7-2.8) mg/dL Total Bilirubin (0.2-1.0) mg/dL AST (10-42) IU/L ALT (10-60) IU/L Alkaline Phosphatase (42-121) IU/L Troponin I 0.04 (<0.49) ng/mL Total Protein (6.7-8.2) g/dL Albumin (3.2-5.5) g/dL Globulin (2.1-4.2) g/dL Albumin/Globulin Ratio (1.0-2.2) Lipase (22-51) U/L 09/11/18 09/10/18 09/10/18 Range/Units 00:22 22:52 22:52 WBC (4.8-10.8) x10^3/uL RBC (4.20-5.40) 10^6/uL Hgb (12.0-16.0) g/dL Hct (37.0-47.0) % MCV (81.0-99.0) fL MCH (27.0-31.0) pg MCHC (32.0-36.0) g/dL RDW (12.0-15.0) % Plt Count (130-450) 10^3/uL MPV (7.9-10.8) fL Neut # (Auto) (1.5-6.6) 10^3/uL Lymph # (Auto) (1.5-3.5) 10^3/uL Grundy # (Auto) (0.0-1.0) 10^3/uL Eos # (Auto) (0.0-0.7) 10^3/uL Baso # (Auto) (0.0-0.1) 10^3/uL Absolute Nucleated RBC x10^3/uL Nucleated RBC % /100WBC ESR 20 (0-30) mm/Hr PT (9.9-12.6) secs INR (0.8-1.2) Anti-Xa Level 0.8 H 1.2 H* ( - 0.7) U/mL Sodium (135-145) mmol/L Potassium (3.5-5.0) mmol/L Chloride (101-111) mmol/L Carbon Dioxide (21-32) mmol/L Anion Gap (6-13) BUN (6-20) mg/dL Creatinine (0.4-1.0) mg/dL Estimated GFR (MDRD) (>89) Glucose (70-100) mg/dL POC Whole Bld Glucose (70 - 100) mg/dL Calcium (8.5-10.3) mg/dL Magnesium (1.7-2.8) mg/dL Total Bilirubin (0.2-1.0) mg/dL AST (10-42) IU/L ALT (10-60) IU/L Alkaline Phosphatase (42-121) IU/L Troponin I (<0.49) ng/mL Total Protein (6.7-8.2) g/dL Albumin (3.2-5.5) g/dL Globulin (2.1-4.2) g/dL Albumin/Globulin Ratio (1.0-2.2) Lipase (22-51) U/L 09/10/18 09/10/18 09/10/18 Range/Units 22:52 18:54 18:54 WBC 7.0 (4.8-10.8) x10^3/uL RBC 4.25 (4.20-5.40) 10^6/uL Hgb 13.1 (12.0-16.0) g/dL Hct 39.7 (37.0-47.0) % MCV 93.5 (81.0-99.0) fL MCH 30.7 (27.0-31.0) pg MCHC 32.9 (32.0-36.0) g/dL RDW 14.5 (12.0-15.0) % Plt Count 209 (130-450) 10^3/uL MPV 8.5 (7.9-10.8) fL Neut # (Auto) (1.5-6.6) 10^3/uL Lymph # (Auto) (1.5-3.5) 10^3/uL Grundy # (Auto) (0.0-1.0) 10^3/uL Eos # (Auto) (0.0-0.7) 10^3/uL Baso # (Auto) (0.0-0.1) 10^3/uL Absolute Nucleated RBC x10^3/uL Nucleated RBC % /100WBC ESR (0-30) mm/Hr PT (9.9-12.6) secs INR (0.8-1.2) Anti-Xa Level ( - 0.7) U/mL Sodium 140 (135-145) mmol/L Potassium 4.2 (3.5-5.0) mmol/L Chloride 103 (101-111) mmol/L Carbon Dioxide 24 (21-32) mmol/L Anion Gap 13.0 (6-13) BUN 20 (6-20) mg/dL Creatinine 0.9 (0.4-1.0) mg/dL Estimated GFR (MDRD) 64 L (>89) Glucose 170 H (70-100) mg/dL POC Whole Bld Glucose (70 - 100) mg/dL Calcium 9.2 (8.5-10.3) mg/dL Magnesium 1.8 (1.7-2.8) mg/dL Total Bilirubin 0.5 (0.2-1.0) mg/dL AST 19 (10-42) IU/L ALT 17 (10-60) IU/L Alkaline Phosphatase 50 (42-121) IU/L Troponin I 0.06 (<0.49) ng/mL Total Protein 7.1 (6.7-8.2) g/dL Albumin 3.9 (3.2-5.5) g/dL Globulin 3.2 (2.1-4.2) g/dL Albumin/Globulin Ratio 1.2 (1.0-2.2) Lipase 36 (22-51) U/L 09/10/18 09/10/18 Range/Units 18:54 18:54 WBC 6.3 (4.8-10.8) x10^3/uL RBC 4.27 (4.20-5.40) 10^6/uL Hgb 13.5 (12.0-16.0) g/dL Hct 40.0 (37.0-47.0) % MCV 93.6 (81.0-99.0) fL MCH 31.5 H (27.0-31.0) pg MCHC 33.6 (32.0-36.0) g/dL RDW 14.5 (12.0-15.0) % Plt Count 205 (130-450) 10^3/uL MPV 8.2 (7.9-10.8) fL Neut # (Auto) 3.7 (1.5-6.6) 10^3/uL Lymph # (Auto) 1.9 (1.5-3.5) 10^3/uL Grundy # (Auto) 0.5 (0.0-1.0) 10^3/uL Eos # (Auto) 0.1 (0.0-0.7) 10^3/uL Baso # (Auto) 0.1 (0.0-0.1) 10^3/uL Absolute Nucleated RBC 0.00 x10^3/uL Nucleated RBC % 0.1 /100WBC ESR (0-30) mm/Hr PT 11.9 (9.9-12.6) secs INR 1.1 (0.8-1.2) Anti-Xa Level ( - 0.7) U/mL Sodium (135-145) mmol/L Potassium (3.5-5.0) mmol/L Chloride (101-111) mmol/L Carbon Dioxide (21-32) mmol/L Anion Gap (6-13) BUN (6-20) mg/dL Creatinine (0.4-1.0) mg/dL Estimated GFR (MDRD) (>89) Glucose (70-100) mg/dL POC Whole Bld Glucose (70 - 100) mg/dL Calcium (8.5-10.3) mg/dL Magnesium (1.7-2.8) mg/dL Total Bilirubin (0.2-1.0) mg/dL AST (10-42) IU/L ALT (10-60) IU/L Alkaline Phosphatase (42-121) IU/L Troponin I (<0.49) ng/mL Total Protein (6.7-8.2) g/dL Albumin (3.2-5.5) g/dL Globulin (2.1-4.2) g/dL Albumin/Globulin Ratio (1.0-2.2) Lipase (22-51) U/L - Diagnostic Imaging Diagnostic Imaging Results: positive: Final report reviewed Diagnostic Imaging Comments: EXAM: CT ANGIOGRAM CHEST EXAM DATE: 09/10/2018 8:20 PM FINDINGS: Pulmonary Arteries: Diagnostic quality: Adequate through the segmental arteries. Positive for multiple bilateral pulmonary emboli. There are lobar and segmental emboli within all lobes. There are lower lobe subsegmental emboli. No saddle pulmonary embolism. There is flattening of the intraventricular septum. The RV LV ratio is abnormal at 1.3. There is no reflux of contrast into the hepatic veins. Lungs/Pleura: There are several nonspecific pulmonary nodules. There is a 10 mm right lower lobe nodule series 5 image 98. There is a 5 mm right upper lobe nodule image 33. There is a 6 mm right middle lobe nodule image 77. There is a 4 mm right lower lobe nodule image 111. There is a 4 mm left upper lobe nodule image 49. There is a 3 mm lingular nodule image 91. Negative for pleural effusion and pneumothorax. Mediastinum: The heart size is normal. No pericardial effusion. No mediastinal or hilar lymphadenopathy. Thoracic Aorta: Unremarkable. Upper Abdomen: Unremarkable. Other: None. IMPRESSION: 1. Positive for acute pulmonary embolism at the lobar and segmental level. Positive for CT features of right ventricular strain. 2. Several noncalcified indeterminant peripheral pulmonary nodules. Largest nodule 10 mm. Differential diagnosis would include granulomatous disease, metastatic disease or inflammatory nodule. If there are no prior chest CTs for comparison, recommend follow-up noncontrast chest CT in 3-6 months to reevaluate. ABX Reporting Has patient been on IV antibiotics over the past 48 hours?: No Assessment/Plan - Problem List (1) Pulmonary embolism Impression: - Positive for acute pulmonary emboli at the lobar and segmental level. Positive for CT features of RV strain - Patient had presenting symptoms of ongoing SOB with activity, which started about 2 weeks ago - The SOB advanced to while at rest - Associated symptoms of palpitations, chest pain, and heaviness - No hemoptysis - Now requires oxygen - Echo today shows RV strain with a moderately enlarged RV, RVSP at rest of 68 mmHg, unknown history of BRYNN - I called [facility], Dr. Srini Massey to review case, images were pushed via our radiology - No need to transport since patient is hemodynamically stable, not in respiratory distress, ok to transition to Eliquis Plan: Stop heparin gtt, start Eliquis, continue to monitor on tele, IV access Qualifiers: Pulmonary embolism type: unspecified Chronicity: acute Acute cor pulmonale presence: with acute cor pulmonale Qualified Code(s): I26.09 - Other pulmonary embolism with acute cor pulmonale (2) Hypoxemia Impression: - Not oxygen dependent at home - Suspected BRYNN given body habitus, large neck circumference and elevated pulmonary pressures on echo - Continues on 2L nasal cannula oxygen - Normal respiratory rate of 16-20 Plan: Continue to monitor, continue respiratory support (3) Volume overload Impression: - Echo showed a flattened LV septal wall in diastole indicating RV volume over load - IV lasix x1 to offload the work load of the heart Plan: Daily weights, continue to treat acute illness of PE, re-assess in the AM (4) Moderate to severe pulmonary hypertension Impression: - Echo today showed an RVSP at rest of 68 mmHg - No prior echo to compare - Unknown history of BRYNN Plan: Give a one time dose of IV lasix tonight, recommend a sleep study which needs to be ordered by PCP (5) Multiple pulmonary nodules Impression: - Several non-calcified indeterminant peripheral pulmonary nodules - Largest nodule is 10 mm & 4 mm located in the right lower lobe - 5 mm in the right upper lobe - 6 mm in the right middle lobe - The patient and her family have been told of this finding and are agreeable to follow up Plan: Continue to treat PE with Eliquis, and continue oxygen administration (6) Grade I diastolic dysfunction Impression: - Echo today shows DD, grade 1 - Normal EF of 70-75% - No LVH Plan: Consider diuretic for home use, give lasix 1 tonight (7) Reactive airway disease Impression: - Listed in history, takes daily Singular which continues here Plan: Support respiratory system, provide oxygen Qualifiers: Asthma severity: unspecified severity (8) Diabetes mellitus type 2 in obese Impression: - Last hemoglobin A1C was 6.5% on 08/13/2018 - Longstanding DM - Takes Metformin at home - Continues on a carb controlled diet, eating well today Plan: Continue SSI, blood sugar checks, and low dose Lantus this evening (9) Hypothyroidism Impression: - last TSH was 1.30 - Prescribed Synthroid 50 mcg daily at home Plan: Continue daily dose, check TSH in the AM (10) Lumbar radiculopathy, chronic Impression: - Primary complaint today of right hip/groin pain - Takes no narcotics at home, but does take Meloxicam (NSAID) - Now since starting Eliquis, NSAIDs are contraindicated - Uses daily CBD oil at home several times per day as per chart review - Recent imaging confirms this, right hip pain is caused by this condition Plan: Continue to monitor for pain control, offer K-pad, and use IV dilaudid as needed (11) Essential hypertension Impression: - Takes Lisinopril at home - Blood pressures WNL today - Still holding KAYE for allowance of IV lasix Plan: Give IV lasix x1, monitor B/P, resume lisinopril upon discharge (12) Morbid obesity with BMI of 45.0-49.9, adult Impression: - Long standing obesity - Current BMI is 48.4 - Likely a contributing factor to this illness - Contributing to ongoing DM type 2 Plan: Recommend weight loss program as per PCP
[2018-09-11] MEDS: FUROSEMIDE 40 MG/4 ML VIAL IVP SCH (16:54)
[2018-09-11] MEDS ORDERED: INSULIN GLARGINE 300 UNIT/3 ML PEN SUBQ SCH (21:00)
--- NOTE | 2018-09-12 00:08 | Ultrasound Report ---
Reason: Pulmonary emboli Procedure Date: 09/11/2018 Accession Number: [id number] / [id number] Procedure: US - Duplex Ext Veins Bilateral CPT Code: FULL RESULT: EXAM: BILATERAL LOWER EXTREMITY VENOUS ULTRASOUND EXAM DATE: 09/11/2018 11:20 PM. CLINICAL HISTORY: Pulmonary emboli. COMPARISON: None. TECHNIQUE: Real-time sonographic vascular imaging was performed by the [facility] through the lower extremities utilizing both color-flow and Doppler spectral analysis. Multiple pharmaceutical representative static images were saved for review. FINDINGS: Right: Common Femoral Vein (CFV): Normal. CFV-GSV Junction: Normal. Profunda Femoral Vein (PFV): Normal. Femoral Vein (FV) Prox: Normal. Femoral Vein (FV) Mid: Normal. Femoral Vein (FV) Dist: Normal. Popliteal Vein: Normal. Posterior Tibial Veins: Normal. Peroneal Veins: Normal. Left: Common Femoral Vein (CFV): Normal. CFV-GSV Junction: Normal. Profunda Femoral Vein (PFV): Normal. Femoral Vein (FV) Prox: Normal. Femoral Vein (FV) Mid: Normal. Femoral Vein (FV) Dist: Normal. Popliteal Vein: Normal. Posterior Tibial Veins: Normal. Peroneal Veins: Normal. Other: There is a 4.0 x 1.3 x 1.4 cm left popliteal fossa cyst containing internal septations and debris. IMPRESSION: No evidence for deep venous thrombosis bilaterally. Complex left popliteal fossa cyst. RADIA
[2018-09-12] MEDS: SODIUM CHLORIDE FLUSH 0.9% 10 ML SYRINGE IVP SCH ×2 (03:28→08:42)
[2018-09-12] MEDS: SODIUM CHLORIDE FLUSH 0.9% 10 ML SYRINGE IVP PRN (03:28)
[2018-09-12 06:09] LABS: BASOPHILS % (AUTO) 0.7 %; EOSINOPHILS # (AUTO) 0.2 10^3/uL (0.0-0.7); EOSINOPHILS % (AUTO) 3.1 %; LYMPHOCYTES # (AUTO) 1.6 10^3/uL (1.5-3.5); LYMPHOCYTES % (AUTO) 27.3 %; MEAN CORPUSCULAR HEMOGLOBIN 31.2 pg (27.0-31.0); MEAN CORPUSCULAR HGB CONC 33.2 g/dL (32.0-36.0); MEAN PLATELET VOLUME 8.2 fL (7.9-10.8); MONOCYTES # (AUTO) 0.5 10^3/uL (0.0-1.0); MONOCYTES % (AUTO) 8.5 %; NEUTROPHILS # (AUTO) 3.5 10^3/uL (1.5-6.6); NEUTROPHILS % (AUTO) 60.4 %; PLT - PLATELET COUNT 199 10^3/uL (130-450); RED BLOOD COUNT 4.18 10^6/uL (4.20-5.40); RED CELL DISTRIBUTION WIDTH 14.2 % (12.0-15.0); WHITE BLOOD COUNT 5.7 x10^3/uL (4.8-10.8)
[2018-09-12 06:18] LABS: ALBUMIN/GLOBULIN RATIO 1.2 (1.0-2.2); BILIRUBIN,TOTAL 0.8 mg/dL (0.2-1.0); CALCIUM 9.3 mg/dL (8.5-10.3); CREATININE 0.7 mg/dL (0.4-1.0); MAGNESIUM 1.9 mg/dL (1.7-2.8); PHOSPHORUS 4.2 mg/dL (2.5-4.6); TOTAL PROTEIN 7.3 g/dL (6.7-8.2)
[2018-09-12 06:33] LABS: HB2 TOTAL 13.6 g/dL; HEMOGLOBIN A1C 0.67 g/dL; HEMOGLOBIN A1C % 6.7 % (4.6-6.2)
[2018-09-12] MEDS ORDERED: LEVOTHYROXINE 25 MCG TABLET PO SCH (07:00)
[2018-09-12] MEDS ORDERED: APIXABAN 5 MG TABLET PO SCH (07:00)
[2018-09-12] MEDS: IPRATROPIUM/ALBUTEROL 3 ML NEB INH SCH (08:10)
[2018-09-12] MEDS: INSULIN ASPART 300 UNIT/3 ML PEN SUBQ SCH ×2 (08:40→12:03)
[2018-09-12] MEDS: MONTELUKAST 10 MG TABLET PO SCH (08:41)
[2018-09-12] MEDS: FUROSEMIDE 40 MG/4 ML VIAL IVP SCH (08:41)
[2018-09-12] MEDS: POLYETHYLENE GLYCOL 3350 17 GM PACKET PO SCH (08:41)
--- NOTE | 2018-09-12 11:53 | Discharge Plan ---
Discharge Plan Disposition: Home, Self Care Condition: Good Prescriptions: oxyCODONE [Roxicodone] 5 mg PO Q4HR PRN #21 tablet PRN Reason: Pain 5 to 7 Apixaban [Eliquis] 10 mg PO BID #22 tablet Apixaban [Eliquis] 5 mg PO BID #81 tablet Diet: Diabetic Activity Restrictions: Activity as Tolerated Shower Restrictions: No Instruction Topics: Heparin injection, Apixaban oral tablets, Furosemide tablets, Anticoagulants Additional Instructions or Follow Up instructions: You were admitted to the hospital and found to have bilateral pulmonary emboli. You were first treated with IV heparin as we were waiting for echocardiogram results in the event that a medical transfer was needed for further intervention. I spoke with Srini Massey MD pulmonary intervention at [facility] in [place] who recommended starting Eliquis (Apixaban) as your PE did not require further interventions. You were started on a loading dose of Eliquis at 10 mg by mouth twice daily for 7 days, then 5 mg by mouth twice daily there after. The blood thinner will protect you and you should take it each day at the same interval time. Please request a sleep study that must be ordered by your PCP as your right sided heart strain may be caused by untreated sleep apnea. Please get a follow up chest CT for your pulmonary (lung) nodules that were also found on our imaging. This should take place in the next few months and needs to be ordered by your primary care provider. A oxygen walking test was performed and you do not qualify for home oxygen. You were previously on Meloxicam, which cannot be taken with blood thinners. I have given you oxycodone for your hip and back pain. Your hemoglobin A1C is 6.7%, so you are doing fine with your diabetes. Please see your PCP within the next week. No Smoking: If you smoke, Please STOP! Call for help. Follow-up with: Mercedes Brown MD [Primary Care Provider] -
[2018-09-12 13:45] VITALS: BP 148/84
[2018-09-12] MEDS ORDERED: FUROSEMIDE 40 MG/4 ML VIAL IVP SCH (17:00)
--- NOTE | 2018-09-12 17:06 | DISCHARGE SUMMARY ---
Discharge Summary Admit Date: 09/10/18 Discharge Date: 09/12/18 Discharging Provider: WALE Chery Primary Care Provider: Mercedes Brown Code Status: Attempt Resuscitation Condition at Discharge: Good Discharge Disposition: 01 Home, Self Care - DIAGNOSES Admission Diagnoses: Other pulmonary embolism without acute cor pulmonale (I26.99) Acute respiratory failure with hypoxia (J96.01) Discharge Diagnoses with Status of Each Condition: Pulmonary emboli (I26.99) new on this admission, continue Eliquis Acute respiratory failure with hypoxia (J96.01) resolved Volume overload (E87.70) resolved Moderate to severe pulmonary hypertension (I27.20) get a sleep study test, continue to treat pulmonary emboli Multiple pulmonary nodules (R91.8) follow up with repeat imaging in the next few months Grade I diastolic dysfunction (I51.9) new on this admission, take rate control meds Reactive airway disease (J45.909) chronic, stable Diabetes mellitus type 2 in obese (E11.69) chronic, stable, HgA1C was 6.7% Hypothyroidism (E03.9) chronic, stable Lumbar radiculopathy, chronic (M54.16) chronic, stable Essential hypertension (I10) chronic, stable Morbid obesity with BMI of 45.0-49.9, adult (E66.01) chronic, stable Chronic anticoagulation (Z79.01) new on this admission - HPI History of Present Illness: This is a pleasant 58-year-old white female with a past medical history of back pain, hypertension, diabetes mellitus type II, Osteoarthritis, and hypothyroidism. She is a good historian, surrounded by family members. She reports that she often travels to [place] and about six months ago when she was sitting in the car going to [place] she noticed some right-sided hip pain. She followed up as an outpatient and underwent multiple studies in the past six months for this along with knee pain, and back pain. Is felt that the hip pain was secondary to sciatica. Subsequently an MRI was done showing DJD of the spine. She was told that she had "decreased fat pads" between her vertebrae and was referred to see a evaluation specialist for possible steroid injections. Regarding the left hip pain and knee pain, she describes that it started at the back of her knee and radiated down to her ankle. She was seen by nursing specialist who diagnosed her with a meniscus tear. About two weeks ago, she began to feel short breath with only minimal physical activity. This was a progressive complaint which then developed with palpitations, chest discomfort with heaviness. Due to these complains she was instructed by her primary care provider to come to the ER. Upon presentation to the ED she was found to be hypoxic in respiratory failure and required supplemental oxygen. Her oxygen s aturation on room air was only 80%. Her heart rate increased to 120 with minimal activity such as taking only a few steps, her respiratory rate was in the 30s and she had a slight increase in troponin at 0.06. CT Angiography of the chest showed bilateral pulmonary emboli at the lobar and segmental location. In addition it showed right ventricular strain. There were multiple pulmonary nodules in her right lobe. She was admitted to inpatient for the treatment of Pulmonary emboli using a heparin drip.An echo cardiogram was obtained to evaluate the right ventricular strain.A call was made to Dr. Srini Massey, Pulmonary interventionalist at [facility], who recommended starting Eliquis and stopping the heparin drip after reviewing films and found that she was other francois hemodynaically stable. - CONSULTS | PROCEDURES Consultations: Dr. Srini Massey- [facility] Pulmonology - HOSPITAL COURSE Hospital Course: The patient had an expected Hospital stay for the treatment of her multiple pulmonary emboli. She was tolerating the Eliquis well and was weaned off of oxygen to room air. She underwent a walking oxygen test with our respiratory therapist who found that she required no supplemental oxygen for home use. Prescriptions were sent to the pharmacy. She was told to stop her Meloxicam as it should not be taken with Eliquis. A short dose of Oxycodone was given in the absence of the Meloxicam. She was told to see her primary care provider within one week and to reevaluate her new pulmonary nodules within the next few months. She was medically stable, was taken home by her via private car and was ambulating well upon discharge. - ALLERGIES Allergies/Adverse Reactions: Allergies Allergy/AdvReac Type Severity Reaction Status Date / Time amlodipine Allergy Unknown Verified 09/13/18 08:01 felodipine Allergy Unknown Verified 09/13/18 08:01 lidocaine Allergy Unknown Verified 09/13/18 08:01 procaine [From Novocain] Allergy Unknown Verified 09/13/18 08:01 seasonal allergies Allergy Unknown Uncoded 09/13/18 08:00 - MEDICATIONS Home Medications: Ambulatory Orders Medication Instructions Recorded Confirmed Acetaminophen 1,000 mg PO TID 09/11/18 09/11/18 Levothyroxine Sodium 50 mcg PO QDAC 09/11/18 09/11/18 Lisinopril 20 mg PO DAILY 09/11/18 09/11/18 Metformin HCl 1,000 mg PO QDBREAKFAST 09/11/18 09/11/18 Montelukast Sodium 10 mg PO DAILY 09/11/18 09/11/18 Apixaban [Eliquis] 5 mg PO BID #81 tablet 09/12/18 Apixaban [Eliquis] 10 mg PO BID #22 tablet 09/12/18 oxyCODONE [Roxicodone] 5 mg PO Q4HR PRN #21 tablet 09/12/18 - PHYSICAL EXAM AT DISCHARGE General Appearance: positive: No acute distress, Alert Eyes Bilateral: positive: PERRL ENT: positive: Pharynx nml, No signs of dehydration Neck: positive: Thyroid nml, No JVD, Trachea midline Respiratory: positive: Chest non-tender, No respiratory distress, Other (scatter ed crackles bilaterally) Cardiovascular: positive: Regular rate & rhythm, No gallop, Systolic murmur, Decreased pulse(s) Peripheral Pulses: positive: 1+ Abdomen: positive: Non-tender, Nml bowel sounds, Hepatomegaly, Other (obese, soft) Back: positive: Nml inspection Skin: positive: Color nml, No rash, Warm, Dry Extremities: positive: Non-tender, Full ROM, Nml appearance, Joint swelling Neurologic/Psychiatric: positive: Oriented x3, CN's nml (2-12), Motor nml, Sensation nml, Mood/affect nml Reflexes: Bicep (R): 3+, Bicep (L): 3+ - LABS Result Diagrams: 09/12/18 05:41 09/12/18 05:41 - FOLLOW UP Follow Up: Follow up with primary care provider For routine labs Follow up with another CT scan of the chest to evaluate newly found pulmonary nodules - TIME SPENT Time Spent in Discharge (Minutes): 50
== END 2018-09-12 14:06 | disposition home or self-care (01) | DRG 175 ==
LOC: ED 17:49 → MS2 21:05
PROVIDERS: ADMIT Internal Medicine; ATTEND Nurse Practitioner
DX: I26.09 Other pulmonary embolism with acute cor pulmonale (principal); J96.01 Acute respiratory failure with hypoxia; Z68.42 Body mass index [BMI] 45.0-49.9, adult; E66.01 Morbid (severe) obesity due to excess calories; G47.33 Obstructive sleep apnea (adult) (pediatric); I27.23 Pulmonary hypertension due to lung diseases and hypoxia; E87.70 Fluid overload, unspecified; R91.8 Other nonspecific abnormal finding of lung field; I11.9 Hypertensive heart disease without heart failure; E11.69 Type 2 diabetes mellitus with other specified complication; J45.909 Unspecified asthma, uncomplicated; E03.9 Hypothyroidism, unspecified; M54.16 Radiculopathy, lumbar region; M19.90 Unspecified osteoarthritis, unspecified site; E78.00 Pure hypercholesterolemia, unspecified; I83.90 Asymptomatic varicose veins of unspecified lower extremity; Z79.84 Long term (current) use of oral hypoglycemic drugs; Z79.899 Other long term (current) drug therapy; Z87.891 Personal history of nicotine dependence
CPT/HCPCS: 36415; 71275; 80053; 81241; 82272; 83036; 83690; 83735; 84100; 84484; 85025; 85027; 85520; 85610; 85651; 86021; 93005; 93306; 93970; 94640; 94664; 94761; 96365; 96375; 99284; A9270; J1170; J1815; Q9967; 84443

== ENCOUNTER 2018-10-10 23:44 | Emergency (ER) | payer BC, OTHER ==
[2018-10-11 00:04] LABS: BILIRUBIN,URINE NEGATIVE (NEGATIVE); GLUCOSE, URINE (UA) NEGATIVE (NEGATIVE); KETONES,URINE (UA) NEGATIVE (NEGATIVE); LEUKOCYTE ESTERASE, URINE MODERATE (NEGATIVE); NITRITE,URINE NEGATIVE (NEGATIVE); OCCULT BLOOD,URINE LARGE (NEGATIVE); PH,URINE 5.5 PH (5.0-7.5); PROTEIN,URINE 100 mg/dL (NEGATIVE); UROBILINOGEN,URINE 0.2 (NORMAL) E.U./dL (NORMAL)
--- NOTE | 2018-10-11 00:10 | ED Physician Documentation ---
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 She also complains of lower abdominal pain and dysuria. She denies fever, nausea or vomiting. She reports chronic lower back pain, with no recent change. She is on Eliquis for pulmonary embolus. Review of Systems Constitutional: denies: Fever Nose: denies: Congestion Throat: denies: Sore throat Cardiac: denies: Chest pain / pressure Respiratory: denies: Dyspnea, Cough GI: reports: Abdominal Pain (lower abdomen). 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 HEENT: Tonsil/Adenoidectomy - Present Medications Home Medications: Ambulatory Orders Medication Instructions Recorded Confirmed Acetaminophen 1,000 mg PO TID 09/11/18 09/11/18 Levothyroxine Sodium 50 mcg PO QDAC 09/11/18 09/11/18 Lisinopril 20 mg PO DAILY 09/11/18 09/11/18 Metformin HCl 1,000 mg PO QDBREAKFAST 09/11/18 09/11/18 Montelukast Sodium 10 mg PO DAILY 09/11/18 09/11/18 Apixaban [Eliquis] 5 mg PO BID #81 tablet 09/12/18 Apixaban [Eliquis] 10 mg PO BID #22 tablet 09/12/18 oxyCODONE [Roxicodone] 5 mg PO Q4HR PRN #21 tablet 09/12/18 Nitrofurantoin Monohyd/M-Cryst 100 mg PO BID #10 capsule 07/08/19 [Macrobid 100 mg Capsule] Phenazopyridine [Pyridium] 200 mg PO TID #6 tablet 10/11/18 - Allergies Allergies/Adverse Reactions: Allergies Allergy/AdvReac Type Severity Reaction Status Date / Time amlodipine Allergy Unknown Verified 10/10/18 23:50 felodipine Allergy Unknown Verified 10/10/18 23:50 lidocaine Allergy Unknown Verified 10/10/18 23:50 procaine [From Novocain] Allergy Unknown Verified 10/10/18 23:50 seasonal allergies Allergy Unknown Uncoded 10/10/18 23:50 - Social History Does the pt smoke?: No Smoking Status: Never smoker Does the pt drink ETOH?: Yes Does the pt have substance abuse?: No - Immunizations Immunizations are current?: Yes - POLST Patient has POLST: No PD ED PE NORMAL - Vitals Vital signs reviewed: Yes (Systolic hypertension) - General General: Alert and oriented X 3, Well developed/nourished, Other (Morbidly obese.) - HEENT HEENT: Atraumatic - Neck Neck: No adenopathy, No JVD - Cardiac Cardiac: RRR - Respiratory Respiratory: No respiratory distress, Clear bilaterally - Abdomen Abdomen: Soft, Other (Mild suprapubic tenderness to palpation, without rebound.) - Back Back: No CVA TTP - Derm Derm: No rash - Extremities Extremities: No edema, No calf tenderness / cord - Neuro Neuro: Alert and oriented X 3, No motor deficit, No sensory deficit Results - Vitals Vitals: Vital Signs - 24 hr 10/10/18 23:45 Temperature 36.3 C L Heart Rate 90 Respiratory 18 Rate Blood Pressure 145/73 H O2 Saturation 97 Oxygen O2 Source Room air - Labs Labs: Laboratory Tests 10/11/18 00:01 Urine Color DARK YELLOW Urine Clarity CLOUDY Urine pH 5.5 Ur Specific [place] 1.015 Urine Protein 100 H Urine Glucose (UA) NEGATIVE Urine Ketones NEGATIVE Urine Occult Blood LARGE H Urine Nitrite NEGATIVE Urine Bilirubin NEGATIVE Urine Urobilinogen 0.2 (NORMAL) Ur Leukocyte Esterase MODERATE H Urine RBC TNTC H Urine WBC >25 H Ur Squamous Epith Cells FEW Squamous Urine Bacteria Rare Ur Microscopic Review INDICATED Urine Culture Comments INDICATED PD MEDICAL DECISION MAKING - ED course Complexity details: reviewed results, re-evaluated patient, considered differential, d/w patient, d/w family ED course: The patient's presentation is most consistent with urinary tract infection. Her presentation does not suggest pyelonephritis nor sepsis. Treatment in the emergency department included administration of Macrobid 100 mg orally and Pyridium 200 mg orally. She is being discharged with prescriptions for both. I discussed with her and her male airplane mechanic apprentice the diagnosis, expected course of illness, antibiotic treatment and outpatient follow-up, as well as potentially worrisome signs or symptoms that should prompt reevaluation in the emergency department. Departure - Departure Disposition: Home, Self Care Clinical Impression: Urinary tract infection Qualifiers: Urinary tract infection type: acute cystitis Hematuria presence: with hematuria Qualified Code(s): N30.01 - Acute cystitis with hematuria Condition: Stable Instructions: ED UTI Cystitis Female Follow-Up: Mercedes Brown MD [Primary Care Provider] - Prescriptions: Nitrofurantoin Monohyd/M-Cryst [Macrobid 100 mg Capsule] 100 mg PO BID #10 capsule Phenazopyridine [Pyridium] 200 mg PO TID #6 tablet Comments: Drink plenty of fluids, including cranberry juice. Take Macrobid twice daily as prescribed. You can use Pyridium as prescribed if needed for painful urination. You can use Tylenol or ibuprofen as needed for fever or discomfort. Follow up with your primary physician within 2 weeks. Call to schedule appointment. Return to the emergency department if you develop increasing abdominal pain, fever with shaking chills, persistent vomiting, or otherwise worsening symptoms.
[2018-10-11 00:27] LABS: CLARITY,URINE CLOUDY (CLEAR)
[2018-10-11 00:28] LABS: BACTERIA,URINE Rare /HPF (None Seen); RBC,URINE TNTC /HPF (0-5); SQUAMOUS EPITHELIAL CELL,UR FEW Squamous (<= Few)
[2018-10-11] MEDS ORDERED: NITROFURANTOIN MACRO 100 MG CAPSULE PO STA (00:41)
[2018-10-11] MEDS ORDERED: PHENAZOPYRIDINE 100 MG TABLET PO STA (00:43)
[2018-10-11 01:15] VITALS: BP 150/69
== END 2018-10-11 01:14 | disposition home or self-care (01) ==
LOC: ED 23:44
DX: N30.01 Acute cystitis with hematuria (principal); I10 Essential (primary) hypertension; E11.9 Type 2 diabetes mellitus without complications; Z79.84 Long term (current) use of oral hypoglycemic drugs
CPT/HCPCS: 81001; 87086; 87181; 99283; 99284; A9270; 81003

== ENCOUNTER 2018-10-17 19:53 | Emergency (ER) | payer BC, OTHER ==
[2018-10-17 20:01] VITALS: BP 145/69
[2018-10-17] MEDS ORDERED: CYCLOBENZAPRINE 10 MG TABLET PO STA (20:22)
--- NOTE | 2018-10-17 20:24 | ED Physician Documentation ---
PD HPI BACK PAIN - Stated complaint Stated Complaint: BACK PX - Chief complaint Chief Complaint: UTI - History obtained from History obtained from: Patient - History of Present Illness Timing - onset: Yesterday (58yo woman with recent dx PE. On eliquis. Prior to that was having a lot of R hip pain. MRI Lspine per her a couple mos aog with multilevel DJD/DDD. Increasing bilateral lumbar paraspinal back pain since yesterday that is worse with bending and twisting. No associated weakness, numbness, tingling, saddle anesthesia, fever, or new incontinence noting that she always has some stress incontinence which is unchanged.) Review of Systems Constitutional: denies: Fever, Chills Cardiac: reports: Reviewed and negative Respiratory: reports: Reviewed and negative GI: reports: Reviewed and negative : reports: Reviewed and negative PD PAST MEDICAL HISTORY - Past Medical History Past Medical History: Yes Cardiovascular: Hypertension, High cholesterol Respiratory: Other Neuro: None Endocrine/Autoimmune: Type 2 diabetes GI: None ART DIRECTOR: None : None HEENT: None Psych: Anxiety Musculoskeletal: None Derm: None - Past Surgical History Past Surgical History: Yes Ortho: Shoulder arthroplasty, 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 HEENT: Tonsil/Adenoidectomy - Present Medications Home Medications: Ambulatory Orders Medication Instructions Recorded Confirmed Acetaminophen 1,000 mg PO TID 09/11/18 10/17/18 Levothyroxine Sodium 50 mcg PO QDAC 09/11/18 10/17/18 Lisinopril 20 mg PO DAILY 09/11/18 10/17/18 Metformin HCl 1,000 mg PO QDBREAKFAST 09/11/18 10/17/18 Montelukast Sodium 10 mg PO DAILY 09/11/18 10/17/18 Apixaban [Eliquis] 5 mg PO BID #81 tablet 09/12/18 10/17/18 Apixaban [Eliquis] 10 mg PO BID #22 tablet 09/12/18 10/17/18 oxyCODONE [Roxicodone] 5 mg PO Q4HR PRN #21 tablet 09/12/18 10/17/18 Cyclobenzaprine [Flexeril] 10 mg PO TID PRN #20 tablet 10/17/18 predniSONE [Deltasone] 20 mg PO [id number] #21 tab 10/17/18 - Allergies Allergies/Adverse Reactions: Allergies Allergy/AdvReac Type Severity Reaction Status Date / Time amlodipine Allergy Unknown Verified 10/17/18 20:05 felodipine Allergy Unknown Verified 10/17/18 20:05 lidocaine Allergy Unknown Verified 10/17/18 20:05 procaine [From Novocain] Allergy Unknown Verified 10/17/18 20:05 seasonal allergies Allergy Unknown Uncoded 10/17/18 20:05 - Social History Does the pt smoke?: No Smoking Status: Never smoker Does the pt drink ETOH?: Yes Does the pt have substance abuse?: No - Immunizations Immunizations are current?: Yes - POLST Patient has POLST: No PD ED PE NORMAL - Vitals Vital signs reviewed: Yes - General General: Alert and oriented X 3, No acute distress, Other (winces with motion/walking) - Abdomen Abdomen: Soft, Non tender - Back Back: No spinal TTP - Extremities Extremities: Other (The patient has equal and normal Achilles and patellar reflexes bilaterally. Normal sensation in all areas of the legs. Patient denies saddle anesthesia. Normal strength in flexion-extension at the ankles, knees, and flexion of the hips.) - Neuro Neuro: Alert and oriented X 3, Normal speech - Psych Psych: Normal mood, Normal affect Results - Vitals Vitals: Vital Signs - 24 hr 10/17/18 19:58 Temperature 36.9 C Heart Rate 88 Respiratory 18 Rate Blood Pressure 145/69 H O2 Saturation 97 Oxygen O2 Source Room air - Labs Labs: Laboratory Tests 10/17/18 20:12 Urine Color YELLOW Urine Clarity CLEAR Urine pH 6.0 Ur Specific [place] 1.010 Urine Protein NEGATIVE Urine Glucose (UA) NEGATIVE Urine Ketones NEGATIVE Urine Occult Blood NEGATIVE Urine Nitrite NEGATIVE Urine Bilirubin NEGATIVE Urine Urobilinogen 0.2 (NORMAL) Ur Leukocyte Esterase NEGATIVE Ur Microscopic Review NOT INDICATED Urine Culture Comments NOT INDICATED PD MEDICAL DECISION MAKING - ED course ED course: 58-year-old woman with what seems like musculoskeletal low back pain without red flags. She is anticoagulated. She already had a referral to a spine surgeon, but now the have kind of sign off of her case since she is anticoagulated. She also has a history of alcoholism and did not want any per narcotic pain medication. We settled on steroids which have offered her some level of relief in the past as well as muscle relaxers. Departure - Departure Disposition: 01 Home, Self Care Clinical Impression: Low back pain Qualifiers: Chronicity: chronic Back pain laterality: bilateral Sciatica presence: without sciatica Qualified Code(s): M54.5 - Low back pain; G89.29 - Other chronic pain Condition: Good Record reviewed to determine appropriate education?: Yes Health Concerns: back pain Plan of Treatment: Patient prefers to avoid narcotics because of a history of alcoholism. We will trial steroids and muscle relaxers. To follow-up with her physician and discuss physical therapy. Care Goals: Your blood pressure was elevated today on check into the emergency department. This does not mean that you have hypertension, it is a common phenomenon to come to the emergency department and have elevated blood pressure. I recommend that you see your primary care physician within the week to have it rechecked when you are feeling better. Instructions: ED Low Back Pain Injury Prescriptions: Cyclobenzaprine [Flexeril] 10 mg PO TID PRN #20 tablet PRN Reason: Spasms predniSONE [Deltasone] 20 mg PO [id number] #21 tab Comments: Followup with your physician, discuss restarting physical therapy. Return for new or worsening symptoms.
[2018-10-17 20:26] LABS: BILIRUBIN,URINE NEGATIVE (NEGATIVE); GLUCOSE, URINE (UA) NEGATIVE (NEGATIVE); KETONES,URINE (UA) NEGATIVE (NEGATIVE); LEUKOCYTE ESTERASE, URINE NEGATIVE (NEGATIVE); NITRITE,URINE NEGATIVE (NEGATIVE); OCCULT BLOOD,URINE NEGATIVE (NEGATIVE); PROTEIN,URINE NEGATIVE (NEGATIVE); UROBILINOGEN,URINE 0.2 (NORMAL) E.U./dL (NORMAL)
[2018-10-17 20:27] LABS: CLARITY,URINE CLEAR (CLEAR)
[2018-10-17] MEDS ORDERED: predniSONE 20 MG TABLET PO STA (20:53)
== END 2018-10-17 21:00 | disposition home or self-care (01) ==
LOC: ED 19:53
DX: M54.5 Low back pain (principal); G89.29 Other chronic pain; I10 Essential (primary) hypertension; E11.9 Type 2 diabetes mellitus without complications; Z79.84 Long term (current) use of oral hypoglycemic drugs; Z86.711 Personal history of pulmonary embolism; Z79.01 Long term (current) use of anticoagulants
CPT/HCPCS: 81003; 99283; 99284; A9270; J7512; 81001; 87086

== ENCOUNTER 2018-11-23 14:51 | Outpatient (CLI) | payer BC, OTHER ==
[2018-11-23 17:10] VITALS: BP 140/70
--- NOTE | 2018-11-23 17:10 | SLEEP CARE CONSULTATION ---
Information from patient questionnaire entered by Britt Monge. I have reviewed and concur with the information entered by Britt Monge. This document represents the service I personally performed and the decisions made by me, Martha Le MD, [facility]. History of Present Illness Reason for Visit: New patient Chief Complaint: reports: Other (DOCTOR ORDER) Duration of Symptoms: 2 MONTHS Usual bedtime: 10:00PM - 12:00AM Time it takes to fall asleep: 5-10 MINUTES Snores at night: Yes Observed to quit breathing while asleep: No Sleeps alone due to snoring: No Number of times waking at night: 2-3 Reasons for waking at night: reports: Pain, Bathroom Toss, Turn, or Twitch while sleeping: Yes Recalls having dreams: Yes Usually gets out of bed at: 8:00-9:00 AM Feels refreshed in the morning: Yes Sleepy or fatigued during the day: Yes Ever fallen asleep while driving: No Takes day naps: Yes (SOMETIMES) Dreams during day naps: Yes Prior sleep studies: No Additional HPI information: I had the pleasure of seeing Ms. Middletoning today regarding the possibility of her having a sleep disorder. As you know, she is a 58 year old lady who complains of shortness of breath from pulmonary embolism. She also has pulmonary hypertension. The patient tells me that she normally goes to bed around 10 pm - midnight, and it takes her approximately 5 - 10 minutes to fall asleep. She has been told that she snores loudly and irregularly at night. She has never been observed to stop breathing in her sleep. Her bed partner has to sleep in a separate room. She can recall waking up on the average of 2 times during the night. Most of the time she wakes up because of having to use the bathroom. She has awakened occasionally because of her own snoring, choking, and having to gasp for air. There is a lot of tossing and turning in her sleep. No somn iloquy (sleep talking) or somnambulism (sleep walking). Generally she can recall having dreams. In the morning she usually gets up out of the bed around 8 - 9 a.m. feeling refreshed and rested. She usually does not have a morning headache. During the day she complains of feeling sleepy and fatigued. Her score on [place] Sleepiness Scale is 10 out of 24. She has never fallen asleep while driving nor has had any accident due to sleepiness. She usually takes 1 - 2 naps during the day. Upon falling asleep during the day she denies having vivid dreams. She has never had sleep paralysis, experienced cataplexy or symptoms of restless leg syndrome. She denies having impaired concentration during the day. Subjective Initial [place] Sleepiness Scale score: 10 Past Medical History Past Medical History: reports: Hypertension, Diabetes, Arthritis, Hypothyroidism, Attention deficit, Other (HURT BACK/KNEES) Social History The patient's occupation is a RETIRED. Patient is and lives in [place]. Have you smoked in the past 12 months: Yes Cigarettes per day (20/pack): 20 Years of smokin Quit date: 1973 Smoking Pack Years: 1.0 Alcohol use: No Caffeine use: Yes Caffeine amount and frequency: LOTS OF TEA Family History Family history of sleep disordered breathing: Yes Family Hx Sleep Apnea: Father: Snoring Allergies and Home Medications Home medication list reviewed: Yes Review of Systems Weight gain over past 5 years: 0 Cardiovascular: reports: high blood pressure, leg or foot swelling Respiratory: denies: shortness of breath, wheeze, sputum production, chronic cough, other Gastrointestinal: denies: heartburn, difficulty swallowing, nausea, vomitting, diarrhea, abdominal pain, other Urinary: reports: frequency (DUE TO DIABETES) Psychiatric: reports: Attention Deficit Hyperactivity Ear/Nose/Throat: reports: sinus problems, dry mouth/throat, tonsillectomy, wisdom teeth removed Endocrine: reports: thyroid disease Musculoskeletal: reports: joint pain (ARTHRITIS) Immunologic: reports: sneezing (ALLERGIES) Physical Exam Vital signs obtained and entered by: Dr. Le Blood Pressure: 140/70 Heart Rate: 95 O2 Saturation: 99 Height: 5 ft 2 in Weight (kg): 282 lb Body Mass Index: 51.5 BMI Classification: Class 3 Neck circumference: 16 Nasal exam: negative: erythema, excoriation, scabs, blood tinged nasal secretions, other Mood/affect: normal HEENT: No craniofacial malformation Nostrils: patent to airflow Turbinates: normal Septum: midline Mouth and throat: narrow oropharynx Soft palate: long Hard palate: normal Uvula: normal Uvula visualization: 25% Mallampati Class III Tongue: normal in size Tonsils: absent bilaterally Chin and jaw: normal size and position Neck: normal w/o lymphadenopathy or thyromegaly Heart: regular rate and rhythm Lungs: clear bilaterally Abdomen: soft Extremities: 1+ edema Neurologic: intact Impression and Plan IMPRESSION: 1. Obstructive Sleep Apnea-Hypopnea Syndrome, as suggested by history of loud and irregular snoring, frequent awakenings during the night, and daytime hypersomnolence. Narrow oropharynx and obesity are common predisposing factors for obstructive sleep apnea-hypopnea syndrome. Obstructive sleep apnea-hypopnea can cause both systemic and pulmonary hypertension. Pathophysiology of sleep- disordered breathing was discussed. I recommend proceeding to polysomnography to confirm the diagnosis and to assess severity. If she has significant sleep disordered breathing, a manual CPAP titration study will also be performed to find the optimal treatment pressure. I informed the patient of what the sleep studies involve and after some discussion, she agreed to proceed. Plan: 1. Schedule polysomnography + manual CPAP titration study and return in 1 to 2 weeks after the study to discuss result and initiate therapy. 2. Avoid long distance driving or when feeling sleepy. 3. Avoid alcohol, sedative and muscle relaxant around bedtime. 4. Attempt to lose weight. I spent 100% of this 15 minute visit face to face with the patient with greater than 50% of this was spent time counseling the patient and coordination of care.
== END 2018-11-23 14:52 | disposition home or self-care (01) ==
LOC: SC 14:51
PROVIDERS: ATTEND Internal Medicine Pulmonary Disease
DX: G47.10 Hypersomnia, unspecified (principal); G47.8 Other sleep disorders; R06.83 Snoring
CPT/HCPCS: 99203; 99212

== ENCOUNTER 2018-12-26 19:22 | Outpatient (CLI) | payer BC, OTHER | END 2018-12-26 19:23 | disposition home or self-care (01) | LOC: SC 19:22 | PROVIDERS: ATTEND Internal Medicine Pulmonary Disease | DX: G47.33 Obstructive sleep apnea (adult) (pediatric) (principal); G47.61 Periodic limb movement disorder; E66.01 Morbid (severe) obesity due to excess calories; Z68.43 Body mass index [BMI] 50.0-59.9, adult | CPT/HCPCS: 95810 ==

== ENCOUNTER 2019-01-10 12:48 | Outpatient (CLI) | payer BC, OTHER ==
[2019-01-10 13:44] VITALS: BP 130/74
--- NOTE | 2019-01-10 13:44 | SLEEP CARE CONSULTATION ---
Information from patient questionnaire entered by Britt Monge. I have reviewed and concur with the information entered by Britt Monge. This document represents the service I personally performed and the decisions made by me, Katerine Kirby RN, MSN, LIQUOR MAKER. History of Present Illness Initial [place] Sleepiness Scale score: 10 Current [place] Sleepiness Scale score: 8 (denies drowsy driving) Additional HPI information: ASTER ALEXANDER returns for follow up of the recently performed polysomnography and informed her of the findings. I explained the pathophysiology behind obstructive sleep apnea. We then spent quite a bit of time discussing different treatment options. For mild obstructive sleep apnea, surgery and oral appliance are alternatives to nasal CPAP therapy but in moderate or severe cases, nasal CPAP is the most effective and reliable treatment. I reviewed the impact of weight changes on sleep apnea and strongly recommended losing weight. After some discussion, the patient reported that she did not want to start the nasal CPAP therapy due to past ex use of CPAP and how it affected her sleep. I explained how the new CPAP machine works and some of masks available now. Patient counseled not drink alcohol less than 4 hours before bedtime as it can increase snoring and apnea. Patient does not drink alcohol. Since she also uses a muscle relaxant for back spasms. So she was advised of impact to her sleep apnea and not to take if for several hours before bedtime. She stated she is going to talk with her PCP as does not like effect. Patient was cautioned about risks of drowsy driving until sleepiness symptoms resolve. Patient denies drowsy driving. [facility] patient education on snoring and sleep apnea given and reviewed. Sleep Study - Polysomnography Polysomnography findings: The quality of the study is fair due to partial loss of airflow and respiratory effort signals.. The patient had reduced sleep efficiency due to several prolonged awakenings after t he sleep onset. The sleep architecture was abnormal for sleep fragmentation and reduced amount of time spent in REM sleep. Respiratory monitoring showed mild obstructive sleep apnea-hypopnea (AHI = 7.7) associated with frequent arousals, oxyhemoglobin desaturation and moderate hypoxia (wagner oxygen saturation of 75%). There also appears to be REM-related hypoventilation. Baseline oxygen saturation was normal. The patient did not sleep supine during this study (supine AHI = 0.0; non-supine = 7.72). Snore was light in intensity. There was mild periodic leg movement of sleep not contributing to the sleep fragmentation. Cardiac rhythm was normal sinus rhythm without significant arrhythmia. No abnormal behavior (parasomnia) observed during the night. Allergies and Home Medications Known drug allergies: Yes (sensitive to alexei drugs) Home medication list reviewed: Yes (no changes reported) Review of Systems Review of systems same as previous: Yes Physical Exam Blood Pressure: 130/74 Cuff size: long Heart Rate: 84 O2 Saturation: 97 Weight: 277 lb 9.6 oz Impression and Plan 1. Obstructive Sleep Apnea-Hypopnea Syndrome, mild, with lowest oxygen saturation of 75%. Patient reports that she is reluctant to start CPAP due to past exposure of being the bed partner of mert who used it but disturbed her sleep with his hose and mask vent. She also moves alot in her sleep. As noted above, I showed her the newer CPAP samples and some masks. The patient was advised to discuss with her PCP about treatment options due to moderate hypoxia and health risks associated with untreated apnea and moderate hypoxia. Treatment of her apnea could benefit her hypertension, diabetes and ADD. She was advised to consider using CPAP until she achieves her weight loss goal. I explained how her morbid obesity can increase her apnea risk and reducing significant weight can reduce apnea risk. 2. Periodic limb movement, mild, that did not fragment patients sleep. Periodic limb movement of sleep (PLMS) is characterized by episodes of repetitive limb movements that occur during sleep and usually involve the lower limbs. The etiology is unknown but can be associated with restless leg syndrome (RLS), neuropathy, spinal cord diseases, kidney disease, rheumatological disorders, narcolepsy, obstructive sleep apnea, and REM sleep behavior disorder. Other factors that can increase PLMS and/or RLS are heredity and iron deficiency as reflected by a low serum ferritin level below 50 to 75mcg / L. Several medications can precipitate or aggravate PLMS such as selective serotonin re- uptake inhibitor antidepressants, tricyclic antidepressants, lithium, and dopamine receptor antagonists with the exception of bupropion. Caffeine can also aggravate PLMS and should be avoided. Sleep hygiene methods can also improve sleep as well as lifestyle changes such as regular exercise. Patient was advised that no treatment is needed at this time. If symptoms increase, then further evaluation is indicated. * Follow up with PCP to discuss treatment options. * Attempt to lose weight. * Avoid muscle relaxant near bedtime. * Contact this office with choice of treatment. I spent 100% of this 35 minute visit face to face with the patient with greater than 50% of this was spent time counseling the patient and coordination of care. Patient spent some time explaining her process of checking orhto complaints then SOB then blood clots ee
== END 2019-01-10 12:49 | disposition home or self-care (01) ==
LOC: SC 12:48
PROVIDERS: ATTEND Nurse Practitioner Family
DX: G47.33 Obstructive sleep apnea (adult) (pediatric) (principal); G47.61 Periodic limb movement disorder; E66.01 Morbid (severe) obesity due to excess calories
CPT/HCPCS: 99212; 99214

== ENCOUNTER 2019-03-21 10:08 | Outpatient (CLI) | payer BC, OTHER ==
[2019-03-21 13:16] LABS: ALBUMIN 4.4 g/dL (3.2-5.5); ALBUMIN/GLOBULIN RATIO 1.2 (1.0-2.2); ALKALINE PHOSPHATASE 49 IU/L (42-121); ALT ALANINE AMINOTRANSFERASE 21 IU/L (10-60); AST ASPARTATE AMINOTRANSFERASE 20 IU/L (10-42); BILIRUBIN,TOTAL 0.7 mg/dL (0.2-1.0); BUN - BLOOD UREA NITROGEN 18 mg/dL (6-20); CALCIUM 9.6 mg/dL (8.5-10.3); CARBON DIOXIDE - CO2 27 mmol/L (21-32); CHLORIDE 103 mmol/L (101-111); CHOL/HDL RATIO 3.5 (<4.4); CHOLESTEROL 225 mg/dL; CREATININE 0.7 mg/dL (0.4-1.0); GFR - MDRD 85 (>89); GLUCOSE 141 mg/dL (70-100); HDL CHOLESTEROL 65 mg/dL; LDL CHOLESTEROL,CALCULATED 128 mg/dL; SODIUM 139 mmol/L (135-145); VLDL CHOLESTEROL 32 mg/dL
[2019-03-21 13:51] LABS: HB2 TOTAL 13.7 g/dL; HEMOGLOBIN A1C 0.66 g/dL; HEMOGLOBIN A1C % 6.6 % (4.6-6.2)
== END 2019-03-21 23:59 | disposition home or self-care (01) ==
LOC: LAB.WCP 10:08
PROVIDERS: ATTEND Physician Assistant Medical
DX: E11.9 Type 2 diabetes mellitus without complications (principal)
CPT/HCPCS: 36415; 80053; 80061; 83036; 83721; 84443

== ENCOUNTER 2019-04-07 14:33 | Outpatient (CLI) | payer BC, OTHER ==
[2019-04-07] MEDS ORDERED: IOVERSOL 320 100 ML VIAL IVP ONE ×2 (14:37→15:13)
--- NOTE | 2019-04-07 16:51 | CT Report ---
Reason: PE Procedure Date: 04/07/2019 Accession Number: [id number] / [id number] Procedure: CT - CHEST W CPT Code: Final Report FULL RESULT: EXAM: CT CHEST EXAM DATE: 04/07/2019 03:08 PM. CLINICAL HISTORY: Follow-up pulmonary nodules. History of pulmonary embolism. COMPARISONS: CHEST ANGIO 10/29/2018 8:29 PM CHEST ANGIO 09/10/2018 8:05 PM. TECHNIQUE: Routine helical CT imaging was performed through the chest. IV contrast: 80 mL Optiray 320. Reconstructions: Coronal and sagittal. In accordance with CT protocol optimization, one or more of the following dose reduction techniques were utilized for this exam: automated exposure control, adjustment of mA and/or KV based on patient size, or use of iterative reconstructive technique. FINDINGS: Lungs/Pleura: The following pulmonary nodules have not enlarged, right upper lobe 6 mm nodule image 66 series 4, right middle lobe 6 mm nodule image 145, right middle lobe 4 mm nodule image 152, right lower lobe nodule image 182 measuring up to 0.9 cm. Left lower lobe 6 mm pleural-based nodule image 190. Left lower lobe pleural-based 5 mm nodule image 1 and 65. No new suspicious nodules are identified there is no pleural effusion or pneumothorax. Mediastinum: Main pulmonary artery is prominent, up to 3 cm, top normal size. No pericardial effusion or mediastinal lymphadenopathy. Bones: Unremarkable. Visualized Abdomen: Unremarkable. Other: None. IMPRESSION: Stable pulmonary nodules. Based on the Fleischner Society criteria as below, this imaging examination demonstrates 18 month timeframe without interval enlargement or increase in number of nodules. Recommend follow-up of the described nodule(s) according to the following guidelines: Fleischner Society Recommendations 2017 MacMahon et al. Radiology 2017 Solid Nodules-Low Risk Patients: >8 mm (multiple) -CT at 3-6 months, then consider CT at 18-24 months Solid Nodules-High Risk Patients: >8 mm (multiple) -CT at 3-6 months, then at 18-24 months JOHN
== END 2019-04-07 14:34 | disposition home or self-care (01) ==
LOC: DI 14:33
PROVIDERS: ATTEND Internal Medicine Hematology & Oncology
DX: R91.8 Other nonspecific abnormal finding of lung field (principal)
CPT/HCPCS: 71260; Q9967

== ENCOUNTER 2019-04-12 09:17 | Outpatient (CLI) | payer BC, OTHER ==
--- NOTE | 2019-04-13 10:03 | Mammography Report ---
Reason: ROUTINE MAMMO Procedure Date: 04/12/2019 Accession Number: [id number] / [id number] Procedure: MGN - Screening Mammo Dig Bilat CPT Code: Final Report FULL RESULT: EXAM: Screening Mammo Dig Bilat DATE: 04/12/2019 11:25 AM CLINICAL HISTORY: The patient is an asymptomatic 59-year-old female with a family history of breast cancer (sister and maternal aunt). TECHNIQUE: (B) - Bilateral CC and MLO views were obtained. COMPARISON: 05/06/2017, 03/21/2016, 03/09/2015, 02/17/2014 and 03/02/2013 PARENCHYMAL PATTERN: The breasts demonstrate scattered fibroglandular densities bilaterally. FINDINGS: There are no suspicious masses, calcifications, or areas of distortion. IMPRESSION: Negative examination. BI-RADS category 1. RECOMMENDATION: (ANNUAL) - Recommend routine annual screening mammography. BI-RADS CATEGORY: BI-RADS category 1. STANDARD QUALIFYING STATEMENTS: 1. This examination was not reviewed with the aid of Computer-Aided Detection (CAD). 2. A negative or benign imaging report should not preclude biopsy if clinically suspicious findings are present. 3. Dense breasts may obscure an underlying neoplasm. BI-RADS 1 -- negative findings (within normal)
== END 2019-04-12 09:18 | disposition home or self-care (01) ==
LOC: DI.N 09:17
DX: Z12.31 Encounter for screening mammogram for malignant neoplasm of breast (principal); Z80.3 Family history of malignant neoplasm of breast
CPT/HCPCS: 77067

== ENCOUNTER 2019-06-20 08:00 | Outpatient (CLI) | payer BC, OTHER ==
[2019-06-20 12:56] LABS: HB2 TOTAL 13.4 g/dL; HEMOGLOBIN A1C 0.61 g/dL; HEMOGLOBIN A1C % 6.3 % (4.6-6.2)
[2019-06-20 13:02] LABS: ALBUMIN 4.4 g/dL (3.2-5.5); ALBUMIN/GLOBULIN RATIO 1.4 (1.0-2.2); ALKALINE PHOSPHATASE 47 IU/L (42-121); ALT ALANINE AMINOTRANSFERASE 18 IU/L (10-60); AST ASPARTATE AMINOTRANSFERASE 17 IU/L (10-42); BILIRUBIN,TOTAL 0.8 mg/dL (0.2-1.0); BUN - BLOOD UREA NITROGEN 19 mg/dL (6-20); CALCIUM 9.4 mg/dL (8.5-10.3); CARBON DIOXIDE - CO2 27 mmol/L (21-32); CHLORIDE 104 mmol/L (101-111); CHOL/HDL RATIO 2.5 (<4.4); CHOLESTEROL 162 mg/dL; CREATININE 0.8 mg/dL (0.4-1.0); GFR - MDRD 73 (>89); GLUCOSE 134 mg/dL (70-100); HDL CHOLESTEROL 64 mg/dL; LDL CHOLESTEROL,CALCULATED 76 mg/dL; LDL/HDL RATIO 1.2 (<4.4); SODIUM 139 mmol/L (135-145); TOTAL PROTEIN 7.6 g/dL (6.7-8.2); VLDL CHOLESTEROL 22 mg/dL
== END 2019-06-20 23:59 | disposition home or self-care (01) ==
LOC: LAB.WCP 08:00
PROVIDERS: ATTEND Physician Assistant Medical
DX: E11.9 Type 2 diabetes mellitus without complications (principal)
CPT/HCPCS: 36415; 80053; 80061; 83036; 83721

== ENCOUNTER 2019-12-01 07:00 | Outpatient (CLI) | payer BC, OTHER ==
[2019-12-01 12:05] LABS: ALBUMIN 4.2 g/dL (3.2-5.5); ALBUMIN/GLOBULIN RATIO 1.3 (1.0-2.2); ALKALINE PHOSPHATASE 56 IU/L (42-121); ALT ALANINE AMINOTRANSFERASE 18 IU/L (10-60); AST ASPARTATE AMINOTRANSFERASE 17 IU/L (10-42); BILIRUBIN,TOTAL 0.9 mg/dL (0.2-1.0); BUN - BLOOD UREA NITROGEN 18 mg/dL (6-20); CALCIUM 9.5 mg/dL (8.5-10.3); CARBON DIOXIDE - CO2 28 mmol/L (21-32); CHLORIDE 102 mmol/L (101-111); CHOL/HDL RATIO 2.4 (<4.4); CHOLESTEROL 162 mg/dL; CREATININE 0.8 mg/dL (0.4-1.0); GLUCOSE 146 mg/dL (70-100); HDL CHOLESTEROL 67 mg/dL; LDL CHOLESTEROL,CALCULATED 70 mg/dL; SODIUM 138 mmol/L (135-145); TOTAL PROTEIN 7.4 g/dL (6.7-8.2); VLDL CHOLESTEROL 25 mg/dL
[2019-12-01 12:11] LABS: CREATININE,URINE 46.1 mg/dL; MICROALBUM/CREATININE RATIO,UR 23.9 ug/mg (<30.0); MICROALBUMIN,URINE 1.1 mg/dL (0-300.0)
[2019-12-01 14:58] LABS: HEMOGLOBIN A1c% 6.8 % (4.27-6.07)
== END 2019-12-01 23:59 | disposition home or self-care (01) ==
LOC: LAB.WCP 07:00
PROVIDERS: ATTEND Physician Assistant Medical
DX: E78.5 Hyperlipidemia, unspecified (principal); E11.9 Type 2 diabetes mellitus without complications; E03.9 Hypothyroidism, unspecified
CPT/HCPCS: 36415; 80053; 80061; 82043; 82570; 83036; 83721; 84443

== ENCOUNTER 2019-12-23 07:12 | Day surgery (SDC) | payer BC, OTHER ==
[2019-12-23] MEDS ORDERED: MIDAZOLAM 2 MG/2 ML VIAL IVP ONE (07:13)
[2019-12-23] MEDS ORDERED: fentaNYL 250 MCG/5 ML VIAL IVP ONE (07:13)
[2019-12-23] MEDS ORDERED: LACTATED RINGERS 1,000 ML IV ONE (07:17)
[2019-12-23 10:10] VITALS: BP 110/62
== END 2019-12-23 07:13 | disposition home or self-care (01) ==
LOC: SDS 07:12
PROVIDERS: ATTEND Surgery
DX: Z12.11 Encounter for screening for malignant neoplasm of colon (principal); K57.30 Diverticulosis of large intestine without perforation or abscess without bleeding; E11.9 Type 2 diabetes mellitus without complications; E78.5 Hyperlipidemia, unspecified; I27.20 Pulmonary hypertension, unspecified; G47.30 Sleep apnea, unspecified; E03.9 Hypothyroidism, unspecified; I10 Essential (primary) hypertension; Z72.89 Other problems related to lifestyle; Z79.84 Long term (current) use of oral hypoglycemic drugs; Z86.711 Personal history of pulmonary embolism; Z87.891 Personal history of nicotine dependence
CPT/HCPCS: 45378; J3010; J7120

== ENCOUNTER 2020-04-09 10:25 | Outpatient (CLI) | payer BC, OTHER ==
--- NOTE | 2020-04-10 12:23 | Mammography Report ---
BILATERAL DIGITAL SCREENING MAMMOGRAM 3D/2D: 04/09/2020 CLINICAL: Routine screening. Comparison is made to exams dated: 04/12/2019 mammogram, 05/06/2017 mammogram, 03/21/2016 mammogram, mammogram, 02/17/2014 mammogram, and 03/02/2013 mammogram - [facility]. Th ere are scattered fibroglandular elements in both breasts. No significant masses, calcifications, or other findings are seen in either breast. There has been no significant interval change. IMPRESSION: NEGATIVE There is no mammographic evidence of malignancy. A 1 year screening mammogram is recommended. This exam was interpreted at Station ID: [id number]. NOTE: For mammograms, a report in lay terms will be sent to the patient. Approximately 15% of breast malignancies will not be visualized mammographically. In the management of a palpable breast mass, a negative mammogram must not discourage biopsy of a clinically suspicious lesion. Electronically Signed By: Enriqueta kebede/vandana:04/09/2020 13:25:57 ACR BI-RADS Category 1: Negative 3341F PARENCHYMAL PATTERN: (A) - The breast(s) demonstrate(s) scattered fibroglandular densities. BI-RADS CATEGORY: (1) - 1 RECOMMENDATION: (ANNUAL) - Recommend routine annual screening mammography. [id number] 1 year screening LATERALITY: (B)
== END 2020-04-09 10:26 | disposition home or self-care (01) ==
LOC: DI.N 10:25
DX: Z12.31 Encounter for screening mammogram for malignant neoplasm of breast (principal)
CPT/HCPCS: 77067

== ENCOUNTER 2020-04-11 11:05 | Emergency (ER) | payer BC, OTHER ==
[2020-04-11] MEDS ORDERED: CYCLOBENZAPRINE 10 MG TABLET PO STA (11:34)
[2020-04-11] MEDS ORDERED: predniSONE 20 MG TABLET PO STA (11:34)
--- NOTE | 2020-04-11 11:37 | ED Physician Documentation ---
PD HPI BACK PAIN - Stated complaint Stated Complaint: BACK PX - Chief complaint Chief Complaint: Back Pain - History obtained from History obtained from: Patient - Additional information Additional information: 60-year-old woman with long history of back problems. A couple of weeks ago, maybe after lifting a bread machine but that may be inconsequential she developed some low back pain in the left buttock. Over the last few days it has been intolerable and has a lot of pain with movements. She denies radiation of the pain, fevers, saddle anesthesia, incontinence, leg pain or swelling other th an chronic left knee pain from a meniscal problem. 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 : None HEENT: None Psych: Anxiety Musculoskeletal: Chronic back pain Derm: None - Past Surgical History Past Surgical History: Yes Ortho: Shoulder arthroplasty, Other /SENIOR INTERNAL AUDITOR: Hysterectomy HEENT: Tonsil/Adenoidectomy - Present Medications Home Medications: Ambulatory Orders Medication Instructions Recorded Confirmed Levothyroxine Sodium 50 mcg PO QDAC 09/11/18 04/11/20 Metformin HCl 1,000 mg PO QDBREAKFAST 09/11/18 04/11/20 lisinopriL [Lisinopril] 20 mg PO DAILY 09/11/18 04/11/20 Aspirin 81 mg PO DAILY 12/22/19 04/11/20 Atorvastatin [Lipitor] 10 mg PO DAILY 12/22/19 04/11/20 Meloxicam 15 mg PO DAILY 12/22/19 04/11/20 Naproxen Sodium [Aleve] 440 mg PO DAILY 12/23/19 04/11/20 Cyclobenzaprine [Flexeril] 10 mg PO TID PRN #20 tablet 04/11/20 predniSONE [Deltasone] 20 mg PO [id number] #21 tab 04/11/20 - Allergies Allergies/Adverse Reactions: Allergies Allergy/AdvReac Type Severity Reaction Status Date / Time amlodipine Allergy Unknown Verified 04/11/20 11:16 felodipine Allergy Unknown Verified 04/11/20 11:16 lidocaine Allergy Unknown Verified 04/11/20 11:16 procaine [From Novocain] Allergy Unknown Verified 04/11/20 11:16 seasonal allergies Allergy Unknown Uncoded 09/20/19 09:01 - Social History Does the pt smoke?: No Smoking Status: Never smoker Does the pt drink ETOH?: Yes Does the pt have substance abuse?: No Substance Use and Type: Marijuana - Immunizations Immunizations are current?: Yes - POLST Patient has POLST: No PD ED PE NORMAL - Vitals Vital signs reviewed: Yes - General General: Alert and oriented X 3, No acute distress, Other (Comfortable at rest but winces with motion) - Back Back: Other (Muscular tenderness of the mid left buttock. There is no midline spinal or low back tenderness.) - Extremities Extremities: Other (The patient has equal and normal Achilles and patellar reflexes bilaterally. Normal sensation in all areas of the legs. Patient denies saddle anesthesia. Normal strength in flexion-extension at the ankles, knees, and flexion of the hips.) - Neuro Neuro: Alert and oriented X 3, Normal speech Results - Vitals Vitals: Vital Signs - 24 hr 04/11/20 04/11/20 11:17 11:44 Temperature 37 C 36.6 C Heart Rate 86 77 Respiratory 18 18 Rate Blood Pressure 152/76 H 154/76 H O2 Saturation 97 97 Oxygen O2 Source Room air PD MEDICAL DECISION MAKING - ED course ED course: With really buttock pain more than back pain, very likely musculature. Examination unremarkable except for wincing with motion. She declined a trigger point injection, she notes she is well tattooed but does not like other needles. This patient has seemingly uncomplicated musculoskeletal back pain. The patient has no "red flags." Specifically denies IV drug use, fevers, incontinence, saddle anesthesia. Spinal epidural abscess was considered, given that the patient has no fever, is not diabetic, has no spinal tenderness, does not use IV drugs, and has no bilateral neurologic symptoms, the diagnosis of spinal epidural abscess is considered exceedingly unlikely. Departure - Departure Disposition: Home, Self Care Clinical Impression: Gluteal pain Condition: Good Record reviewed to determine appropriate education?: Yes Instructions: ED Low Back Pain Injury Prescriptions: predniSONE [Deltasone] 20 mg PO [id number] #21 tab Cyclobenzaprine [Flexeril] 10 mg PO TID PRN #20 tablet PRN Reason: Spasms Comments: Call your doctor to arrange a follow-up appointment, make the next available appointment. In the interim, return anytime if worse or if new symptoms develop. Discharge Date/Time: 04/11/20 12:27
[2020-04-11 11:46] VITALS: BP 154/76
--- OUTSIDE RECORDS SUMMARY | 2020-04-18 00:43 | EXTERNAL MEDICAL SUMMARY RPT | Continuity of Care Document ---
:1960 Demographics Phone Unavailable Preferred Language Lebanese Marital Status Unknown Congregation Affiliation Unknown Race Unknown Ethnic Group Unknown Author Organization [facility] Address [address] [place] [address] Phone Care Team Providers Name Role Phone Young Unavailable Unavailable [place] Unavailable Unavailable PA-C Unavailable Unavailable Problems date description facility 2020-03-07 00:00:00 BMP [facility] [place] [facility] 2020-03-07 00:00:00 HGBA1C [facility] [place] [facility] 2020-03-08 00:00:00 Health-related behavior [facility] [place] [facility] 2020-03-08 00:00:00 Tobacco use and exposure [facility] [place] [facility] 2020-03-08 00:00:00 Exercise [facility] [place] [facility] 2020-03-08 00:00:00 Details of drug misuse behavior [facility] [place] [facility] 2020-03-08 00:00:00 Alcohol use [facility] [place] [facility] 2020-03-08 00:00:00 Tobacco smoking status NHIS [facility] [place] [facility] 2020-03-08 00:00:00 Total score? [facility] [place] [facility] 2020-03-08 00:00:00 Former smoker [facility] [place] [facility] 2020-03-28 00:00:00 Health-related behavior [facility] [place] [facility] 2020-03-28 00:00:00 Tobacco use and exposure [facility] [place] [facility] 2020-03-28 00:00:00 Exercise [facility] [place] [facility] 2020-03-28 00:00:00 Details of drug misuse behavior [facility] [place] [facility] 2020-03-28 00:00:00 Alcohol use [facility] [place] [facility] 2020-03-28 00:00:00 Tobacco smoking status NHIS [facility] [place] [facility] 2020-03-28 00:00:00 Total score? 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 2020-04-11 11:05 FDC (CURRENT) USE OF ORAL [facility] HYPOGLYCEMIC DRUGS 2020-09-25 16:15 OTHER PULMONARY EMBOLISM [facility] WITHOUT ACUTE COR PULMONALE 2020-09-25 16:15 UNSPECIFIED OSTEOARTHRITIS, [facility] UNSPECIFIED SITE 2020-09-25 16:15 ENCOUNTER FOR THERAPEUTIC DRUG [facility] LEVEL MONITORING 2020-09-25 16:15 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 NO KNOWN ALL[facility]GIES [facility] lidocaine [facility] felodip[facility]lodipine [facility] SULFASALAZINE [facility] SULFA ANTIBIOTICS [facility] seasonal allergies [facility] NO ALLERGY INFORMATION AVAILABLE [facility] NO KNOWN ALLERGIES [facility] AMOXICILLIN [facility] FLUTICASONE [facility] LATEX [facility]oc[facility] Medications date description facility 2020-03-08 00:00:00 null [facility] [place] 2020-03-08 00:00:00 null [facility] 2020-03-08 00:00:00 METHYLPREDNISOLONE [facility] [place] 2020-03-08 00:00:00 METHYLPREDNISOLONE [facility] [place] Results test status date ordered by attending specimen bienvenido e MAMMOGRAM unknown 2020-04-09 unknown unknown unknown 00:00:00 MG_Breast_Screening unknown 2020-04-09 unknown unknown un known 00:00:00 mammogram unknown 2020-04-09 unknown unknown unknown 00:00:00 facility observation status value reference units lab abnor mal line range code notes [facility] unknown BIRADS unknown CPT-7 unk nown unknown [facility] 1 [id number] [place] [facility] MG_Breast_Sc unknown BIRADS unknown _[id number] unknown unknown [facility] reening 1 6-6 [place] [facility] BIRADS unknown _71 unk nown unknown [facility] 1 [place] [facility] Social History date description facility 2020-03-08 00:00:00 Former smoker [facility] [place] date description facility 2020-03-28 00:00:00 Former smoker [facility] [place] Social History date description facility 2020-03-08 00:00:00 Former smoker [facility] [place] date description facility 2020-03-28 00:00:00 Former smoker [facility] [place] date description facility [id number]
== END 2020-04-11 12:27 | disposition home or self-care (01) ==
LOC: ED 11:05
DX: M53.3 Sacrococcygeal disorders, not elsewhere classified (principal); M54.5 Low back pain; I10 Essential (primary) hypertension; E11.9 Type 2 diabetes mellitus without complications; Z79.84 Long term (current) use of oral hypoglycemic drugs; Z79.82 Long term (current) use of aspirin
CPT/HCPCS: 99282; 99283; A9270; J7512

== ENCOUNTER 2020-05-05 23:30 | Outpatient (CLI) | payer BC, OTHER | END 2020-05-05 23:31 | disposition E | LOC: EMS 23:30 | PROVIDERS: ATTEND Surgery | DX: I46.9 Cardiac arrest, cause unspecified (principal) | CPT/HCPCS: A0425; A0429 ==